=== PATIENT | male | born 1985 | race Caucasian/White ===

== ENCOUNTER 2018-02-10 17:00 | Inpatient (IN) | payer MEDICAID, SELFPAY ==
[2018-02-10] VITALS (20 sets, daily range): BP systolic 87–143; BP diastolic 65–80; PULSE 84–124; RESP 12–40; TEMP 36.2–36.6; O2SAT 66–100; BMI 26.6; BMI 27.3
--- NOTE | 2018-02-10 17:03 | EKG12_ITS ---
Test Reason : OD Blood Pressure : / mmHG Vent. Rate : 117 BPM Atrial Rate : 117 BPM P-R Int : 120 ms QRS Dur : 086 ms QT Int : 370 ms P-R-T Axes : 070 087 021 degrees QTc Int : 516 ms Sinus tachycardia Nonspecific ST abnormality Abnormal ECG Confirmed by HUMPHREY MORENO, NAHUM ([id number]), news assignment editor DIVYA TAYLOR ([id number]) on 02/14/2018 1:45:52 PM Referred By: TARUN Confirmed By:NAHUM YIN MD
--- NOTE | 2018-02-10 17:10 | RAD_ITS ---
XR Chest 1 View INDICATION: OVERDOSE, FOUND UNRESPONSIVE IN A FIELD COMPARISON: September 19, 2007 TECHNIQUE: Frontal view of the chest FINDINGS: Dense extensive airspace opacities are seen throughout both lungs, with obscuration of the cardiac border. No significant effusion. Osseous structures are grossly unremarkable. RAD/Chest 1 View (Portable) IMPRESSION: Diffuse dense bilateral air space opacities, may represent severe pulmonary edema or ARDS. Superimposed infection or aspiration not excluded. at 1727 Reported and signed by: Nimisha Ireland MD Electronically Signed: Nimisha Ireland MD at 17:25 EDT Tel , Service support ,
[2018-02-10] MEDS: Naloxone 2 MG/2 ML Syringe IV (17:13)
--- NOTE | 2018-02-10 17:16 | ED.DCSUM_ITS ---
- ER Visit Summary Date of Service: 02/10/18 Chief Complaint: Respiratory arrest secondary to IV heroin History of Present Illness: The patient is a 32 M who presents with pinpoint pupils and decreased level of conscious. Paramedics states his initial pulse ox was 48%. With tactile stimulus his pulse ox improved to 70%. He did receive intranasal Narcan. He is unable to give a sufficient history. He does admit to IV drug use. And specifically he admits to heroin. Track chan are noted. There is no evidence of abscess or cellulitis. There are no prior records. Allergies are unknown. Meds are unknown. Physical Examination: Initial vital signs reveal a blood pressure of 143/65 heart rate of 124 respiratory 35 with initial reading of 92% on 15 L by nonrebreather mask. He does have pink frothy sputum. He is in respiratory distress. Pupils are pinpoint. TMs normal. Posterior pharynx remarkable for frothy sputum. Trachea midline. Rales are noted throughout. Heart is rapid and regular. Abdomen is benign. He does have tattoos. None of his tattoos are infected. He is not alert nor is he oriented. He withdraws to painful stimuli. DTRs symmetric. There is no clonus or Babinski sign. Test Results: EKG reveals a sinus tachycardia rate of [address]-T wave changes. Single view portable x-ray reveals pulmonary edema interpreted by me. CBC is remarkable white count 3.4 thousand with 73% segs. Hemoglobin 19.5. ABG reveals a metabolic acidosis with a significant AA gradient. Emergency Department Course and Treatment: EKG, portable chest x-ray, ABG and appropriate blood work was ordered. I was informed by respiratory therapist his pulse ox was 67%. He was reexamined his pulse ox is now 92% on 15 L. Since clinically he is in pulmonary edema BiPAP was ordered. He will require admission to the ICU. Treatment Plan: BiPAP, symptomatic treatment and admission to ICU Disposition: Admit to ICU Impression: 1. Respiratory failure with hypoxia secondary to IV drug use, heroin 2. Pulmonary edema secondary to IV drug use 3. Metabolic acidosis 4. Sinus tachycardia documented on monitor and EKG This note was generated with [employer] dictation software. It may contain incorrect words, spelling, and punctuation that were not noted in review of the chart prior to signing ED Disposition - Plan for ED Patient: Chief Complaint: Overdose Referrals: Nicholas Prince [Primary Care Provider] -
[2018-02-10 17:30] LABS: Base Excess -9 mmol/L (-2 to +2); Bicarbonate 17.3 mmol/L (22-26); Blood Gas Specimen Type ART; EPAP 8; FI02 100; IPAP 12; PO2 198 mmHG (75-100); RR 12; SITE R Brachial; SO2 100 % (95-99); Time Given 1727; Total Carbon Dioxide 18 mmol/L; pH 7.31 (7.35-7.45)
[2018-02-10 17:46] LABS: Absolute Lymphocyte Count 0.73 X10^3/ul (0.83-4.51); Absolute Neutrophil Count 2.5 X10^3/uL (2.0-7.7); Basophil# 0.01 X10^3/uL; Basophil% 0.3 % (0-1); Lymphocyte # 0.73 X10^3/ul (4.0); Lymphocyte % 21.7 % (19-41); Mean Corp Hgb Conc 33.1 g/gl (32-36); Mean Corpuscular Hgb 28.1 pg (27.0-32.0); Mean Corpuscular Volume 84.7 fL (80-94); Mean Platelet Vol. 8.8 fl (6.2-12.0); Monocyte# 0.16 X10^3/uL; Monocyte% 4.7 % (0-10); Neutrophil # 2.47 X10^3/uL (2.7-7.7); Neutrophil % 73.3 % (47-70); Platelet Count 271 K/mm3 (150-450); RBC Distribution Width CV 13.6 % (11.6-14.6); RBC Distribution Width SD 42.5 fl (35.1-43.9); Red Blood Count 6.95 M/mm3 (4.6-6.2); White Blood Count 3.4 K/mm3 (4.4-11.0)
[2018-02-10 17:47] LABS: Hematocrit 58.9 % (40-54)
[2018-02-10 17:48] LABS: Hemoglobin 19.5 g/dl (13.0-16.5); POSITIVE COUNT NO; POSITIVE DIFFERENTIAL NO; POSITIVE MORPHOLOGY NO
[2018-02-10 18:17] LABS: BNP,B-Type NATRIURETIC PEPTIDE 29.5 pg/mL (0-100)
[2018-02-10 18:27] LABS: Anion Gap 10 (5-15); BUN 23 mg/dL (7-18); BUN/Creat Ratio 14.6 RATIO (10-20); Calcium,Total 8.3 mg/dL (8.5-10.1); Chloride 107 mmol/L (98-107); Creatinine, Serum 1.58 mg/dL (0.70-1.30); EST Glomerular Filtration Rate 54 mL/min (>60); Est Glom Filt Rate - Afr Amer 65 mL/min (>60); Estimated Creatinine Clearance 67.12 ml/min; Glucose 120 mg/dL (74-106); Potassium 3.5 mmol/L (3.5-5.1); Sodium Level 141 mmol/L (136-145)
--- NOTE | 2018-02-10 18:29 | HP.PCM_ITS ---
<Zeyad Byrne - Last Filed: 02/10/18 18:32> Problem List (1) Acute respiratory failure with hypoxia Status: Acute (2) Heroin abuse Status: Acute History of Present Illness Date of Admission: 02/10/18 Chief Complaint: decreased LOC The patient is a 32 year old M heroin abuser who presents to the ER via EMS for decreased LOC and respiratory failure. He was very lethargic and unable to provide much history. He was able to be awoken to answer yes/no questions, would not open his eyes or participate more than that. He has been SOB for one day and states he was in normal health prior to that. He was reported to be an IV heroin abuser, when I asked he states he snorts heroin, denies injecting, denies other drug use. He is SOB and was coughing up pink sputum at presentation. He has no fever at this time. He is resting on his left side on Bipap in the ER,respiratory is going to trial him on CPAP as well. ABG was acidotic with pH 7.31, low bicarb, 100% O2 sat with p)2 109, and pCO2 34 @ 12/ 8. He is tachycardic and tachypneic. At this time BMP is pending, he has a low white count and elevated Hgb. CXR shows diffuse opacities - ARDS picture vs severe edema vs infection. [] Past Medical History Allergies No Known Allergies Allergy (Verified 02/10/18 17:15) Surgical History: no surgical history Psychiatric History: No pertinent psych hx Lives: Alone Smoking Status: Current every day smoker Drugs: Heroin - *Family History Maternal History Items: Unknown Paternal History Items: Unknown Review of Systems Unable to obtain accurate/complete ROS d/t: limited 2/2 decreased LOC. VTE Information - Inpt Only VTE Present on Admission: No VTE Mechan Device Prophylaxis: SCD's VTE Pharm Prophylaxis ordered?: Yes Patient Problems: Active and Suspected Problems Acute respiratory failure with hypoxia (Acute) Heroin abuse (Acute) - Physical Exam General: Disoriented, Lethargic HEENT: Atraumatic Neck: Supple, No JVD, Negative Carotid Bruits Lungs: Diminished, Wheezes Cardiovascular: Regular rate, No murmurs Abdomen: Bowel Sounds Present, Soft, Non Tender Extremities: No edema, Capillary Refill Less than 3 Seconds Skin: No rashes, No breakdown Musculoskeletal: No Tenderness to Palpation of Joints or Extremities Neurological: Cranial nerves II-XII grossly intact Psych/Mental Status: Normal Affect, - - lethargic Vital Signs Temp Pulse Resp BP Pulse Ox 97.1 F L 103 H 30 H 114/70 92 02/10/18 17:02 02/10/18 18:06 02/10/18 18:06 02/10/18 18:06 02/10/18 18:06 Oxygen Flow Rate (L/min) 15 Oxygen Delivery Method Bi-pap Weight: 81.647 kg Body Mass Index (BMI) 26.6 Laboratory Tests Past 24 Hrs 02/10/18 02/10/18 02/10/18 17:25 17:25 17:25 WBC 3.4 L RBC 6.95 H Hgb 19.5 H* Hct 58.9 H MCV 84.7 MCH 28.1 MCHC 33.1 RDW 13.6 RDW Differential 42.5 Plt Count 271 MPV 8.8 Immature Gran % (Auto) 0.000 Neut % (Auto) 73.3 H Lymph % (Auto) 21.7 Sampson % (Auto) 4.7 Eos % (Auto) 0.0 Baso % (Auto) 0.3 Absolute Neuts (auto) 2.5 Absolute Lymphs (auto) 0.73 L Total Counted Not Reportable Specimen Type Sample Site pH Bicarbonate Actual POC Total CO2 Base Excess O2 Saturation O2 % ABG pCO2 ABG pO2 Respiration Rate O2 Delivery Device EPAP IPAP Blood Gas Notified Whom Blood Gas Notified Time Sodium Pending Potassium Pending Chloride Pending Carbon Dioxide Pending Anion Gap Pending BUN Pending Creatinine Pending Est GFR (MDRD) Af Amer Pending Est GFR (MDRD) Non-Af Pending BUN/Creatinine Ratio Pending Glucose Pending Lactic Acid Pending Calcium Pending B-Natriuretic Peptide 02/10/18 02/10/18 17:25 17:28 WBC RBC Hgb Hct MCV MCH MCHC RDW RDW Differential Plt Count MPV Immature Gran % (Auto) Neut % (Auto) Lymph % (Auto) Sampson % (Auto) Eos % (Auto) Baso % (Auto) Absolute Neuts (auto) Absolute Lymphs (auto) Total Counted Specimen Type ART Sample Site R Brachial pH 7.31 L Bicarbonate Actual 17.3 L POC Total CO2 18 Base Excess -9 L O2 Saturation 100 H O2 % 100 ABG pCO2 34.0 L ABG pO2 198 H Respiration Rate 12 O2 Delivery Device Bi / C PAP EPAP 8 IPAP 12 Blood Gas Notified Whom ED Blood Gas Notified Time 1727 Sodium Potassium Chloride Carbon Dioxide Anion Gap BUN Creatinine Est GFR (MDRD) Af Amer Est GFR (MDRD) Non-Af BUN/Creatinine Ratio Glucose Lactic Acid Calcium B-Natriuretic Peptide 29.5 Assessment/Plan Active and Suspected Problems Acute respiratory failure with hypoxia (Acute) Heroin abuse (Acute) 1. Acute hypoxic respiratory failure 2/2 heroin overdose with ARDS picture on CXR - pt improved after initial narcan administration. Possibly etiologies include septic emboli, pna, pulmonary edema. Pt will be admitted to ICU and the automotive general sales manager was contacted. Pt was also initially having pink frothy sputum. His pH was decreased at 7.31, however his O2 was high and CO2 low, so respiratory is backing him down to CPAP only at this time. Lungs are diminished and with faint wheezing. Decreased WBCs and decreased absolute lymphocyte count. BNP is WNL. He is tachycardic and tachypneic. -Pt to be placed Vanc/Zosyn -obtain blood cultures. -LA pending -sputum cx, urine antigens -ID consult -Echo tomorrow AM -screen for HIV, hepatitis -check CMP -check CT brain 2. MEAGAN - with elevated BUN, likely dehydrated, received 1 liter IV fluids in the ER. Continue IV fluids. DVT ppx: SCDs, defer chemoppx with hemoptysis This patient was seen by Zeyad Byrne PA-C under the supervision of Doctor Isiah. <Rolly Joyce - Last Filed: 02/10/18 18:57> History of Present Illness Seen and examined Patient was brought in by EMS for decreased level of consciousness, tachypneic, hypoxic respiratory failure. As per the ER physician, Dr. Marquez patient had pinpoint pupil, decreased level of consciousness and pulse ox was 88%. He was given Narcan for IV drug use heroin put on BiPAP. Initial vitals in the ER was tachycardiac, tachypneic and hypoxic. Initial blood work shows hematocrit 58.9, hemoglobin 19.5, leukocyte 3.4 thousand, ALC 730 suggestive of lymphopenia. ABG shows pH 7.31, PCO2 34 bicarb 24 so possible compensated metabolic acidosis with respiratory alkalosis. Chest x-ray shows diffuse dense bilateral airspace opacities, reported as severe and he developed ARDS. Superimposed infection or aspiration not excluded Past Medical History Allergies No Known Allergies Allergy (Verified 02/10/18 17:15) VTE Information - Inpt Only VTE Mechan Device Prophylaxis: SCD's VTE Pharm Prophylaxis ordered?: Yes - Physical Exam General: Alert, Confused, Disoriented, Lethargic HEENT: Atraumatic, Normocephalic, Sluggish Pupils Neck: Supple, No JVD, Negative Carotid Bruits Lungs: Diminished, Short of Breath, Tachypneic, Using Accessory Muscles, Wheezes - Expiratory wheezing present on both side Cardiovascular: Regular rate, Normal S1, Normal S2, No murmurs, Tachycardic Abdomen: Bowel Sounds Present, Soft, Non Tender Extremities: No edema, Capillary Refill Less than 3 Seconds Skin: No rashes, No breakdown Musculoskeletal: No Tenderness to Palpation of Joints or Extremities Neurological: Cranial nerves II-XII grossly intact Psych/Mental Status: Normal Affect, Appropriate Vital Signs Temp Pulse Resp BP Pulse Ox 97.1 F L 103 H 29 H 114/70 90 02/10/18 17:02 02/10/18 18:06 02/10/18 18:15 02/10/18 18:06 02/10/18 18:15 Assessment/Plan This patient was seen in conjunction with Zeyad SAEED. I have independently interviewed and examined the patient and reviewed pertinent history, examination findings, laboratory and plan of management. I have reviewed the note and agree with the documented findings with the few additional points. In brief, patient is admitted for SIRS (tachycardia, tachypnea, hypoxia, pulse ox was 88%. and leukopenia) possible secondary to bilateral diffuse pulmonary nodules suggestive of possible septic emboli, acute hypoxic respiratory failure with compensated metabolic acidosis. Patient also has altered mental status due to drug overdose. Patient was put on BiPAP and admitted in ICU. Deleon catheter ordered. IV fluid normal saline bolus and septic workup ordered Including broad-spectrum antibiotic vancomycin and Zosyn. HIV and hepatitis and 2D echo ordered. Discussed with automotive general sales manager Dr. Perez. ID consult. The patient also has acute kidney injury as mentioned above Chest x-ray shows diffuse dense bilateral airspace opacities, reported as severe and he developed ARDS. Superimposed infection or aspiration not excluded I have discussed my assessment with Zeyad SAEED and orders have been reviewed. Laboratory Results 02/10/18 17:25: WBC 3.4 L, RBC 6.95 H, Hgb 19.5 H*, Hct 58.9 H, MCV 84.7, MCH 28.1, MCHC 33.1, RDW 13.6, RDW Differential 42.5, Plt Count 271, MPV 8.8, Immature Gran % (Auto) 0.000, Neut % (Auto) 73.3 H, Lymph % (Auto) 21.7, Sampson % (Auto) 4.7, Eos % (Auto) 0.0, Baso % (Auto) 0.3, Absolute Neuts (auto) 2.5, Absolute Lymphs (auto) 0.73 L, Total Counted Not Reportable 02/10/18 17:25: Sodium 141, Potassium 3.5, Chloride 107, Carbon Dioxide 24.0, Anion Gap 10, BUN 23 H, Creatinine 1.58 H, Estim Creat Clear Calc 67.12, Est GFR (MDRD) Af Amer 65, Est GFR (MDRD) Non-Af 54 L, BUN/Creatinine Ratio 14.6, Glucose 120 H, Calcium 8.3 L 02/10/18 17:25: Lactic Acid Cancelled 02/10/18 17:25: B-Natriuretic Peptide 29.5 02/10/18 17:28: Specimen Type ART, Sample Site R Brachial, pH 7.31 L, Bicarbonate Actual 17.3 L, POC Total CO2 18, Base Excess -9 L, O2 Saturation 100 H, O2 % 100, ABG pCO2 34.0 L, ABG pO2 198 H, Respiration Rate 12, O2 Delivery Device Bi / C PAP, EPAP 8, IPAP 12, Blood Gas Notified Whom ED , Blood Gas Notified Time 1727 02/10/18 18:43: Lactic Acid Pending This note was generated with [employer] dictation software. Every effort was made to ensure accuracy, however computerized fiscal assistant mistakes may persist. Code Visit Inpatient E&M: 56809 Init Hosp L3
--- NOTE | 2018-02-10 18:52 | CT_ITS ---
CT Head or Brain W/O Contrast INDICATION: ALTERED MENTAL STATUS. Hypoxia secondary to IV drug use. Pt shielded COMPARISON: None TECHNIQUE: Noncontrast axial CT examination of the brain. Radiation dose optimization applied. FINDINGS: The ventricular system is normal in size and symmetric. The cortical sulci, sylvian fissures, and basal cisterns are well seen. The lanza-white matter junction is distinct. There is no evidence of acute intracranial hemorrhage, mass effect, midline shift, or abnormal extra-axial collection. The calvarium is intact. Small layering fluid in the right maxillary sinus, paranasal sinuses and mastoid cells are otherwise clear. CT/Brain/Head without Contrast IMPRESSION: No evidence of acute intracranial abnormality by noncontrast CT. at 1929 Reported and signed by: Nimisha Ireland MD Electronically Signed: Nimisha Ireland MD at 19:28 EDT Tel , Service support ,
--- NOTE | 2018-02-10 19:10 | RAD_ITS ---
XR Foot Min 3 Views INDICATION: right foot pain, bruising, patient found unresponsive in field earlier today for overdose COMPARISON: None TECHNIQUE: 3 views of the right foot FINDINGS: The osseous structures are intact and well aligned. Joint spaces are preserved. No evidence of fracture or dislocation. Soft tissue swelling is noted at the forefoot. RAD/Foot min 3 Views IMPRESSION: Soft tissue swelling of the right forefoot without evidence of fracture or dislocation. at 1929 Reported and signed by: Nimisha Ireland MD Electronically Signed: Nimisha Ireland MD at 19:27 EDT Tel , Service support ,
[2018-02-10 19:13] LABS: Lactic Acid 1.4 mmol/L (0.4-2.0)
[2018-02-10 20:10] LABS: International Normalized Ratio 1.2; Partial Thromboplast Time 25.2 Seconds (24.1-36.2); Prothrombin Time (Protime)PT. 14.7 SECONDS (11.7-14.9)
[2018-02-10 20:12] LABS: AST(SGOT) 87 U/L (15-37); Alanine Aminotransfer ALT/SGPT 79 U/L (16-61); Albumin, Serum 2.8 g/dL (3.2-5.0); Alkaline Phosphatase 170 U/L (45-117); Bilirubin, Direct 0.12 mg/dL (0.00-0.30); Globulin 3.2 g/dL (2.2-4.2)
[2018-02-10] MEDS: 0.9% Normal Saline 1,000 ML 100 ML IV (20:25)
--- NOTE | 2018-02-10 20:45 | PCM.RX.CS ---
Consult Pharmacy has been consulted to manage selected antiobiotic: Vancomycin Type of Consult: New start Suspected Infection: Sepsis Prior Doses of Antibiotics Received/Current Regimen: Medications Vancomycin HCl (Vancomycin) 1,000 mg in 200 mls @ 200 mls/hr IV Q12H SAMUEL Vancomycin HCl 1,250 mg/ (Dextrose) 275 mls @ 250 mls/hr IV X1 ONE Stop: 02/10/18 21:05 Last Admin: 02/10/18 20:25 Dose: 250 mls/hr Labs: Sodium 141 mmol/L (136-145) 02/10/18 17:25 Potassium 3.5 mmol/L (3.5-5.1) 02/10/18 17:25 Chloride 107 mmol/L (98-107) 02/10/18 17:25 Carbon Dioxide 24.0 mmol/L (21.0-32.0) 02/10/18 17:25 Anion Gap 10 (5-15) 02/10/18 17:25 BUN 23 mg/dL (7-18) H 02/10/18 17:25 Creatinine 1.58 mg/dL (0.70-1.30) H 02/10/18 17:25 Est GFR (MDRD) Af Amer 65 mL/min (>60) 02/10/18 17:25 Est GFR (MDRD) Non-Af 54 mL/min (>60) L 02/10/18 17:25 BUN/Creatinine Ratio 14.6 RATIO (10-20) 02/10/18 17:25 Glucose 120 mg/dL (74-106) H 02/10/18 17:25 Weight used for dosin.6 kg Estimated Creatinine Clearance: 67 ml/min Goal Trough: 15-20 mcg/mL Pharmacy Plan for Drug Dosing: Pharmacy Service will continue to monitor and adjust dosing as required. Follow-Up Labs: Trough Vancomycin Labs to be done on [date and time ordered]: 02/12/18 0830
[2018-02-10 21:03] LABS: HIV - WCH Non-Reactive (Nonreactive)
[2018-02-10 22:50] LABS: Probe Check PASS
[2018-02-10] MEDS: Ipratropium/Albuterol Sulfate 3 ML AMPUL.NEB INHALATION (22:50)
[2018-02-10 22:51] LABS: M R Staph aureus DNA By PCR POSITIVE (Negative)
[2018-02-10] MEDS: Piperacil/Tazobactam 3.375 GM/50 ML ML IV (23:00)
[2018-02-10 23:01] LABS: Color, Urine Yellow (Yellow); Glucose, Dipstick Normal (Normal); Ketone-Dipstick Negative (Negative); Leukocyte Esterase-Dipstick 500 /ul (Negative); Nitrite-Dipstick Negative (Negative); Occult Blood-Urine 50 /ul (Negative); Protein-Dipstick 30 mg/dl (Negative); Specific Gravity, Urine 1.025 (1.002-1.030); Urine Bilirubin Dipstick Negative (Negative); Urine Clarity Cloudy (Clear); Urine Urobilinogen Normal (Normal)
--- NOTE | 2018-02-10 23:42 | CPS ---
FIO2 to 45%
[2018-02-11] VITALS (40 sets, daily range): BP systolic 90–135; BP diastolic 53–84; PULSE 49–113; RESP 12–39; TEMP 36.4–37.9; O2SAT 86–100
--- NOTE | 2018-02-11 01:43 | CPS ---
decreased FIO2 to 35%
[2018-02-11] MEDS: Ipratropium/Albuterol Sulfate 3 ML AMPUL.NEB INHALATION ×2 (03:10→06:36)
[2018-02-11 05:25] LABS: Hematocrit 41.4 % (40-54); Hemoglobin 13.9 g/dl (13.0-16.5); Mean Corp Hgb Conc 33.6 g/gl (32-36); Mean Corpuscular Hgb 28.4 pg (27.0-32.0); Mean Corpuscular Volume 84.5 fL (80-94); Mean Platelet Vol. 9.1 fl (6.2-12.0); Platelet Count 187 K/mm3 (150-450); RBC Distribution Width CV 13.3 % (11.6-14.6); RBC Distribution Width SD 40.5 fl (35.1-43.9); White Blood Count 7.5 K/mm3 (4.4-11.0)
[2018-02-11 05:37] LABS: Scan Indicated on CBC? Y/N NO
--- NOTE | 2018-02-11 05:55 | RAD_ITS ---
STUDY: X-RAY CHEST REASON FOR EXAM: Male, 32 years old. Shortness of breath, cough, overdose, question aspiration. TECHNIQUE: PA and lateral views of the chest. COMPARISON: 02/10/2018 FINDINGS: Slight decrease of distribution and in density of bilateral alveolar airspace disease. Possible mild compression of basilar parenchyma. There is no demonstrated pleural abnormality. Normal size heart. Normal mediastinum and keeley. Normal visualized pulmonary arteries. Normal visualized aortic arch and descending thoracic aorta. Normal visualized thoracic spine. Normal visualized ribs, clavicles, and shoulders. There is no demonstrated abnormality of the visualized soft tissue structures of the upper abdomen. RAD/Chest PA and Lateral IMPRESSION: Airspace opacification/pulmonary edema appears mildly decreased. Electronically Signed: Beverly Freire MD at 5:03 EDT , Service support ,
--- NOTE | 2018-02-11 05:55 | ECHOD_ITS ---
Reason For Study: RESP FAILURE Procedure This was a 2D Doppler, Color Flow transthoracic echocardiogram. The exam was of adequate technical quality. Exam performed portable in ICU/CCU. Left Ventricle Normal LV size. Left ventricular systolic function is normal. The estimated ejection fraction is 65 %. No evidence for diastolic dysfunction. No regional wall motion abnormalities noted. Right Ventricle Normal RV size. Normal systolic function. Atria Normal left atrium. Normal right atrium. No doppler evidence for ASD. Mitral Valve There is no mitral annular calcification. Normal mitral valve. Trivial mitral valve insufficiency. Tricuspid Valve Normal tricuspid valve. Trivial tricuspid valve insufficiency. Right ventricular systolic pressure estimated to be 22 mmHg. Aortic Valve Normal aortic valve. Trisinus/trileaflet aortic valve. Pulmonic Valve The pulmonic valve is not well visualized. Trivial pulmonic valve insufficiency. Great Vessels Normal sized aortic root. Pericardium/Pleural No pericardial effusion. MMode/2D Measurements & Calculations LVIDd: 4.3 cm IVSd: 0.96 cm Ao root diam: 2.9 cm LVIDs: 2.5 cm LVPWd: 1.2 cm LA dimension: 3.1 cm RVDd: 2.9 cm FS: 41.5 % LAV(MOD-bp): 39.0 ml LA A4 area: 14.8 cm2 RA A4 area: 11.3 cm2 LAV(MOD-bp) Indexed: 20.0 ml/m2 LAV(MOD-sp2): 40.6 ml LAV(MOD-sp4): 36.3 ml Doppler Measurements & Calculations MV E max deven: 94.1 cm/sec Lat Peak E' Deven: 19.0 cm/sec Med Peak E' Deven: 11.3 cm/sec MV A max deven: 71.2 cm/sec E/E' lat: 4.9 E/E' med: 8.3 MV E/A: 1.3 Ao V2 max: 150.8 cm/sec LV V1 max: 137.4 cm/sec PA V2 max: 98.6 cm/sec Ao max P.1 mmHg LV V1 max P.6 mmHg PI end-d deven: 158.7 cm/sec TR max deven: 216.5 cm/sec TR max P.7 mmHg Interpretation Summary Left ventricular systolic function is normal. The estimated ejection fraction is 65 %. Trivial mitral valve insufficiency. Trivial tricuspid valve insufficiency. Trivial pulmonic valve insufficiency. Right ventricular systolic pressure estimated to be 22 mmHg. No evidence for diastolic dysfunction. Ordering Physician: Rolly Joyce Referring Physician: Nicholas Prince Performed By: Kerry Spain, MEERA, RVT
[2018-02-11 06:26] LABS: Anion Gap 7 (5-15); BUN 20 mg/dL (7-18); BUN/Creat Ratio 19.6 RATIO (10-20); Chloride 110 mmol/L (98-107); Creatinine, Serum 1.02 mg/dL (0.70-1.30); EST Glomerular Filtration Rate 90 mL/min (>60); Est Glom Filt Rate - Afr Amer 108 mL/min (>60); Estimated Creatinine Clearance 100.59 ml/min; Glucose 109 mg/dL (74-106); Potassium 3.8 mmol/L (3.5-5.1); Sodium Level 141 mmol/L (136-145)
[2018-02-11] MEDS: Piperacil/Tazobactam 3.375 GM/50 ML ML IV (06:43)
--- NOTE | 2018-02-11 06:52 | PCM.CON.CC ---
Problem List (1) Acute respiratory failure with hypoxia Status: Acute (2) Heroin abuse Status: Acute Reason for Consult Date of Consultation: 02/11/18 Reason for Consultation: Acute hypoxic respiratory failure History of Present Illness: The patient is a 32 year old M, with a past medical history significant for heroin abuse, presented to [facility] on 02/10/2018 after being found hypoxic. Patient reportedly was found blue with a saturation of 48%. Patient did receive intranasal Narcan, but was unable to provide any history at that time. Patient reportedly did report intranasal and IV heroin use in the past. Upon presentation to the emergency room, patient was noted to be tachycardic with a saturation of 92% on a nonrebreather mask. Patient reportedly had a cough productive of frothy sputum and rales were noted throughout. EKG showed sinus tachycardia and a portable chest x-ray showed bilateral pulmonary infiltrates that was suspected to be pulmonary edema. Initial hemoglobin was noted to be 19.5. Patient was placed on BiPAP and admitted to the intensive care unit. While in the intensive care unit, patient has been requiring BiPAP throughout the evening. Mental status has slowly improved. No fevers have been noted. Patient denies any pain at this time. Patient is intermittently cooperative with questioning, but is not providing a review of systems at this time. Patient continues to report IV and snorting of heroin. Patient states he did snort heroin yesterday, but is not answering questions as far as the frequency per dose administered. Patient is not answering if he has a history of endocarditis secondary to IV drug use, sharing of needles or recent constitutional symptoms such as fever, chills, nausea or vomiting. Past Medical History Allergies No Known Allergies Allergy (Verified 02/10/18 17:15) Surgical History: no surgical history Psychiatric History: No pertinent psych hx Lives: Alone Smoking Status: Current every day smoker Drugs: Heroin - *Family History Maternal History Items: Unknown Paternal History Items: Unknown Review of Systems Unable to obtain accurate/complete ROS d/t: See HPI Patient Problems: Active and Suspected Problems Acute respiratory failure with hypoxia (Acute) Heroin abuse (Acute) Objective: Multiple chest x-rays were reviewed. All of these show bilateral fluffy infiltrates without pneumothorax. Foot x-ray reportedly shows soft tissue swelling only. - Physical Exam General: - - RASS -2. Intermittently cooperative with exam. Thin build. HEENT: Atraumatic, PERRLA, EOMI, Normocephalic, - - Scleral injection noted Oral: Moist Mucosa, No Gingival or Mucosal Lesions/ Ulcerations, - - Fair dentition Neck: Supple, No JVD, No Nodes, Trachea Midline Lungs: No rhonchi, No wheeze, Rales, - - Symmetric expansion. No dullness to percussion. Cardiovascular: Normal S1, Normal S2, No murmurs, No rub noted, No Gallop, Tachycardic Abdomen: Bowel Sounds Present, Soft, Non Tender, Non-Distended, Obese Extremities: No clubbing, No cyanosis, No edema, - - Numerous track chan noted. Skin: - - No obvious sites of superficial erythema or fluctuance Musculoskeletal: No Tenderness to Palpation of Joints or Extremities Lymphatic: No Cervical, Supraclavicular, or Inguinal Adenopathy Neurological: Cranial nerves II-XII grossly intact, Neuro grossly intact, Motor Exam 5/5 strength throughout, Sensory exam intact to light touch and pain, - - Spontaneous movement of all extremities. Psych/Mental Status: Flat Affect, Restless Vital Signs Temp Pulse Resp BP Pulse Ox 37.2 C 82 36 H 100/74 98 02/11/18 04:00 02/11/18 05:45 02/11/18 05:45 02/11/18 05:00 02/11/18 05:45 Oxygen Delivery Method Bi-pap Weight: 81.3 kg Body Mass Index (BMI) 27.3 Intake and Output for Last 24 Hours 02/09/18 02/10/18 02/11/18 23:59 23:59 23:59 Intake Total 812 / 812 Output Total 415 / 415 Balance 397 / 397 Microbiology Past 72 Hours 02/10/18 22:00 Legionella Antigen - Final Urine, Clean Catch Streptococcus pneumoniae Antigen (M - Final Laboratory Tests Past 24 Hrs 02/10/18 02/10/18 02/10/18 18:43 19:35 19:35 WBC RBC Hgb Hct MCV MCH MCHC RDW RDW Differential Plt Count MPV PT 14.7 INR 1.2 APTT 25.2 Sodium Potassium Chloride Carbon Dioxide Anion Gap BUN Creatinine Estim Creat Clear Calc Est GFR (MDRD) Af Amer Est GFR (MDRD) Non-Af BUN/Creatinine Ratio Glucose Lactic Acid 1.4 Calcium Total Bilirubin 0.30 Direct Bilirubin 0.12 AST 87 H ALT 79 H Alkaline Phosphatase 170 H Total Protein 6.0 L Albumin 2.8 L Globulin 3.2 Urine Color Urine Clarity Urine pH Ur Specific [place] Urine Protein Urine Glucose (UA) Urine Ketones Urine Occult Blood Urine Nitrite Urine Bilirubin Urine Urobilinogen Ur Leukocyte Esterase Hepatitis A IgM Ab Hep Bs Antigen Hep B Core IgM Ab Hepatitis C Ab (EIA) HIV 1&2 Antibody MRSA (PCR) 02/10/18 02/10/18 02/10/18 19:35 19:35 20:20 WBC RBC Hgb Hct MCV MCH MCHC RDW RDW Differential Plt Count MPV PT INR APTT Sodium Potassium Chloride Carbon Dioxide Anion Gap BUN Creatinine Estim Creat Clear Calc Est GFR (MDRD) Af Amer Est GFR (MDRD) Non-Af BUN/Creatinine Ratio Glucose Lactic Acid Calcium Total Bilirubin Direct Bilirubin AST ALT Alkaline Phosphatase Total Protein Albumin Globulin Urine Color Urine Clarity Urine pH Ur Specific [place] Urine Protein Urine Glucose (UA) Urine Ketones Urine Occult Blood Urine Nitrite Urine Bilirubin Urine Urobilinogen Ur Leukocyte Esterase Hepatitis A IgM Ab Pending Hep Bs Antigen Pending Hep B Core IgM Ab Pending Hepatitis C Ab (EIA) Pending HIV 1&2 Antibody Non-Reactive MRSA (PCR) POSITIVE H 02/10/18 02/11/18 02/11/18 22:00 04:30 04:30 WBC 7.5 RBC 4.90 Hgb 13.9 Hct 41.4 MCV 84.5 MCH 28.4 MCHC 33.6 RDW 13.3 RDW Differential 40.5 Plt Count 187 MPV 9.1 PT INR APTT Sodium Cancelled Potassium Cancelled Chloride Cancelled Carbon Dioxide Cancelled Anion Gap Cancelled BUN Cancelled Creatinine Cancelled Estim Creat Clear Calc Cancelled Est GFR (MDRD) Af Amer Cancelled Est GFR (MDRD) Non-Af Cancelled BUN/Creatinine Ratio Cancelled Glucose Cancelled Lactic Acid Calcium Cancelled Total Bilirubin Direct Bilirubin AST ALT Alkaline Phosphatase Total Protein Albumin Globulin Urine Color Yellow Urine Clarity Cloudy Urine pH 6.0 Ur Specific [place] 1.025 Urine Protein 30 H Urine Glucose (UA) Normal Urine Ketones Negative Urine Occult Blood 50 H Urine Nitrite Negative Urine Bilirubin Negative Urine Urobilinogen Normal Ur Leukocyte Esterase 500 H Hepatitis A IgM Ab Hep Bs Antigen Hep B Core IgM Ab Hepatitis C Ab (EIA) HIV 1&2 Antibody MRSA (PCR) 02/11/18 06:00 WBC RBC Hgb Hct MCV MCH MCHC RDW RDW Differential Plt Count MPV PT INR APTT Sodium 141 Potassium 3.8 Chloride 110 H Carbon Dioxide 24.0 Anion Gap 7 BUN 20 H Creatinine 1.02 Estim Creat Clear Calc 100.59 Est GFR (MDRD) Af Amer 108 Est GFR (MDRD) Non-Af 90 BUN/Creatinine Ratio 19.6 Glucose 109 H Lactic Acid Calcium 8.0 L Total Bilirubin Direct Bilirubin AST ALT Alkaline Phosphatase Total Protein Albumin Globulin Urine Color Urine Clarity Urine pH Ur Specific [place] Urine Protein Urine Glucose (UA) Urine Ketones Urine Occult Blood Urine Nitrite Urine Bilirubin Urine Urobilinogen Ur Leukocyte Esterase Hepatitis A IgM Ab Hep Bs Antigen Hep B Core IgM Ab Hepatitis C Ab (EIA) HIV 1&2 Antibody MRSA (PCR) Clinical Impression(s) from Imaging Studies Chest X-Ray 02/10/18 17:10 IMPRESSION: Diffuse dense bilateral air space opacities, may represent severe pulmonary edema or ARDS. Superimposed infection or aspiration not excluded. at 1727 Reported and signed by: Nimisha Ireland MD Electronically Signed: Nimisha Ireland MD at 17:25 EDT Tel , Service support , Brain CT 02/10/18 18:52 IMPRESSION: No evidence of acute intracranial abnormality by noncontrast CT. at 1929 Reported and signed by: Nimisha Ireland MD Electronically Signed: Nimisha Ireland MD at 19:28 EDT Tel , Service support , Foot X-Ray 02/10/18 19:10 IMPRESSION: Soft tissue swelling of the right forefoot without evidence of fracture or dislocation. at 1929 Reported and signed by: Nimisha Ireland MD Electronically Signed: Nimisha Ireland MD at 19:27 EDT Tel , Service support , Chest X-Ray 02/11/18 05:55 IMPRESSION: Airspace opacification/pulmonary edema appears mildly decreased. Electronically Signed: Beverly Freire MD at 5:03 EDT , Service support , Assessment/Plan Active and Suspected Problems Acute respiratory failure with hypoxia (Acute) Heroin abuse (Acute) RECOMMENDATIONS: 1. Continue empiric antibiotics 2. Await blood cultures and echocardiogram 3. BiPAP breaks as tolerated 4. Possible CT chest later today 5. Initiate p.o. diet if able to tolerate off BiPAP for more than an hour IMPRESSIONS: 1. Acute hypoxic respiratory failure Exact etiology is unclear at this time. Differential diagnosis would include: ARDS, septic emboli, neurogenic pulmonary edema, PCP pneumonia and hypersensitivity pneumonitis secondary to talc. Patient's infiltrates have not significantly improved overnight despite BiPAP therapy. Patient continues to have an elevated respiratory rate and increased FiO2 requirements. Will attempt BiPAP breaks later today. Patient should remain on empiric antibiotics until blood cultures are negative. Patient does have an echocardiogram to evaluate for possible endocarditis. Patient may require CT scan of the chest to further evaluate parenchymal injury. If patient is able to tolerate BiPAP breaks, initiation of diet would not be unreasonable. 2. Poor cooperation/history of heroin abuse Patient is not very forthcoming on the details leading to his presentation. Will need to watch closely for signs and symptoms of withdrawal. HIV testing is negative. Hepatitis panel is currently pending. TIME: 32 minutes critical care time spent addressing patient's acute hypoxic respiratory failure, attempting to obtain history, review of all data and collaboration with care team (5:30 AM to 6:30 AM) Code Visit [id number]: [id number] Critical care first hour
--- NOTE | 2018-02-11 07:08 | CON.PCM_ITS ---
Problem List (1) Acute respiratory failure with hypoxia Status: Acute (2) Heroin abuse Status: Acute Reason for Consult Date of Consultation: 02/11/18 Reason for Consultation: Acute hypoxic respiratory failure History of Present Illness: The patient is a 32 year old M, with a past medical history significant for heroin abuse, presented to [facility] on 02/10/2018 after being found hypoxic. Patient reportedly was found blue with a saturation of 48%. Patient did receive intranasal Narcan, but was unable to provide any history at that time. Patient reportedly did report intranasal and IV heroin use in the past. Upon presentation to the emergency room, patient was noted to be tachycardic with a saturation of 92% on a nonrebreather mask. Patient reportedly had a cough productive of frothy sputum and rales were noted throughout. EKG showed sinus tachycardia and a portable chest x-ray showed bilateral pulmonary infiltrates that was suspected to be pulmonary edema. Initial hemoglobin was noted to be 19.5. Patient was placed on BiPAP and admitted to the intensive care unit. While in the intensive care unit, patient has been requiring BiPAP throughout the evening. Mental status has slowly improved. No fevers have been noted. Patient denies any pain at this time. Patient is intermittently cooperative with questioning, but is not providing a review of systems at this time. Patient continues to report IV and snorting of heroin. Patient states he did snort heroin yesterday, but is not answering questions as far as the frequency per dose administered. Patient is not answering if he has a history of endocarditis secondary to IV drug use, sharing of needles or recent constitutional symptoms such as fever, chills, nausea or vomiting. Past Medical History Allergies No Known Allergies Allergy (Verified 02/10/18 17:15) Surgical History: no surgical history Psychiatric History: No pertinent psych hx Lives: Alone Smoking Status: Current every day smoker Drugs: Heroin - *Family History Maternal History Items: Unknown Paternal History Items: Unknown Review of Systems Unable to obtain accurate/complete ROS d/t: See HPI Patient Problems: Active and Suspected Problems Acute respiratory failure with hypoxia (Acute) Heroin abuse (Acute) Objective: Multiple chest x-rays were reviewed. All of these show bilateral fluffy infiltrates without pneumothorax. Foot x-ray reportedly shows soft tissue swelling only. - Physical Exam General: - - RASS -2. Intermittently cooperative with exam. Thin build. HEENT: Atraumatic, PERRLA, EOMI, Normocephalic, - - Scleral injection noted Oral: Moist Mucosa, No Gingival or Mucosal Lesions/ Ulcerations, - - Fair dentition Neck: Supple, No JVD, No Nodes, Trachea Midline Lungs: No rhonchi, No wheeze, Rales, - - Symmetric expansion. No dullness to percussion. Cardiovascular: Normal S1, Normal S2, No murmurs, No rub noted, No Gallop, Tachycardic Abdomen: Bowel Sounds Present, Soft, Non Tender, Non-Distended, Obese Extremities: No clubbing, No cyanosis, No edema, - - Numerous track chan noted. Skin: - - No obvious sites of superficial erythema or fluctuance Musculoskeletal: No Tenderness to Palpation of Joints or Extremities Lymphatic: No Cervical, Supraclavicular, or Inguinal Adenopathy Neurological: Cranial nerves II-XII grossly intact, Neuro grossly intact, Motor Exam 5/5 strength throughout, Sensory exam intact to light touch and pain, - - Spontaneous movement of all extremities. Psych/Mental Status: Flat Affect, Restless Vital Signs Temp Pulse Resp BP Pulse Ox 37.2 C 82 36 H 100/74 98 02/11/18 04:00 02/11/18 05:45 02/11/18 05:45 02/11/18 05:00 02/11/18 05:45 Oxygen Delivery Method Bi-pap Weight: 81.3 kg Body Mass Index (BMI) 27.3 Intake and Output for Last 24 Hours 02/09/18 02/10/18 02/11/18 23:59 23:59 23:59 Intake Total 812 / 812 Output Total 415 / 415 Balance 397 / 397 Microbiology Past 72 Hours 02/10/18 22:00 Legionella Antigen - Final Urine, Clean Catch Streptococcus pneumoniae Antigen (M - Final Laboratory Tests Past 24 Hrs 02/10/18 02/10/18 02/10/18 18:43 19:35 19:35 WBC RBC Hgb Hct MCV MCH MCHC RDW RDW Differential Plt Count MPV PT 14.7 INR 1.2 APTT 25.2 Sodium Potassium Chloride Carbon Dioxide Anion Gap BUN Creatinine Estim Creat Clear Calc Est GFR (MDRD) Af Amer Est GFR (MDRD) Non-Af BUN/Creatinine Ratio Glucose Lactic Acid 1.4 Calcium Total Bilirubin 0.30 Direct Bilirubin 0.12 AST 87 H ALT 79 H Alkaline Phosphatase 170 H Total Protein 6.0 L Albumin 2.8 L Globulin 3.2 Urine Color Urine Clarity Urine pH Ur Specific [place] Urine Protein Urine Glucose (UA) Urine Ketones Urine Occult Blood Urine Nitrite Urine Bilirubin Urine Urobilinogen Ur Leukocyte Esterase Hepatitis A IgM Ab Hep Bs Antigen Hep B Core IgM Ab Hepatitis C Ab (EIA) HIV 1&2 Antibody MRSA (PCR) 02/10/18 02/10/18 02/10/18 19:35 19:35 20:20 WBC RBC Hgb Hct MCV MCH MCHC RDW RDW Differential Plt Count MPV PT INR APTT Sodium Potassium Chloride Carbon Dioxide Anion Gap BUN Creatinine Estim Creat Clear Calc Est GFR (MDRD) Af Amer Est GFR (MDRD) Non-Af BUN/Creatinine Ratio Glucose Lactic Acid Calcium Total Bilirubin Direct Bilirubin AST ALT Alkaline Phosphatase Total Protein Albumin Globulin Urine Color Urine Clarity Urine pH Ur Specific [place] Urine Protein Urine Glucose (UA) Urine Ketones Urine Occult Blood Urine Nitrite Urine Bilirubin Urine Urobilinogen Ur Leukocyte Esterase Hepatitis A IgM Ab Pending Hep Bs Antigen Pending Hep B Core IgM Ab Pending Hepatitis C Ab (EIA) Pending HIV 1&2 Antibody Non-Reactive MRSA (PCR) POSITIVE H 02/10/18 02/11/18 02/11/18 22:00 04:30 04:30 WBC 7.5 RBC 4.90 Hgb 13.9 Hct 41.4 MCV 84.5 MCH 28.4 MCHC 33.6 RDW 13.3 RDW Differential 40.5 Plt Count 187 MPV 9.1 PT INR APTT Sodium Cancelled Potassium Cancelled Chloride Cancelled Carbon Dioxide Cancelled Anion Gap Cancelled BUN Cancelled Creatinine Cancelled Estim Creat Clear Calc Cancelled Est GFR (MDRD) Af Amer Cancelled Est GFR (MDRD) Non-Af Cancelled BUN/Creatinine Ratio Cancelled Glucose Cancelled Lactic Acid Calcium Cancelled Total Bilirubin Direct Bilirubin AST ALT Alkaline Phosphatase Total Protein Albumin Globulin Urine Color Yellow Urine Clarity Cloudy Urine pH 6.0 Ur Specific [place] 1.025 Urine Protein 30 H Urine Glucose (UA) Normal Urine Ketones Negative Urine Occult Blood 50 H Urine Nitrite Negative Urine Bilirubin Negative Urine Urobilinogen Normal Ur Leukocyte Esterase 500 H Hepatitis A IgM Ab Hep Bs Antigen Hep B Core IgM Ab Hepatitis C Ab (EIA) HIV 1&2 Antibody MRSA (PCR) 02/11/18 06:00 WBC RBC Hgb Hct MCV MCH MCHC RDW RDW Differential Plt Count MPV PT INR APTT Sodium 141 Potassium 3.8 Chloride 110 H Carbon Dioxide 24.0 Anion Gap 7 BUN 20 H Creatinine 1.02 Estim Creat Clear Calc 100.59 Est GFR (MDRD) Af Amer 108 Est GFR (MDRD) Non-Af 90 BUN/Creatinine Ratio 19.6 Glucose 109 H Lactic Acid Calcium 8.0 L Total Bilirubin Direct Bilirubin AST ALT Alkaline Phosphatase Total Protein Albumin Globulin Urine Color Urine Clarity Urine pH Ur Specific [place] Urine Protein Urine Glucose (UA) Urine Ketones Urine Occult Blood Urine Nitrite Urine Bilirubin Urine Urobilinogen Ur Leukocyte Esterase Hepatitis A IgM Ab Hep Bs Antigen Hep B Core IgM Ab Hepatitis C Ab (EIA) HIV 1&2 Antibody MRSA (PCR) Clinical Impression(s) from Imaging Studies Chest X-Ray 02/10/18 17:10 IMPRESSION: Diffuse dense bilateral air space opacities, may represent severe pulmonary edema or ARDS. Superimposed infection or aspiration not excluded. at 1727 Reported and signed by: Nimisha Ireland MD Electronically Signed: Nimisha Ireland MD at 17:25 EDT Tel , Service support , Brain CT 02/10/18 18:52 IMPRESSION: No evidence of acute intracranial abnormality by noncontrast CT. at 1929 Reported and signed by: Nimisha Ireland MD Electronically Signed: Nimisha Ireland MD at 19:28 EDT Tel , Service support , Foot X-Ray 02/10/18 19:10 IMPRESSION: Soft tissue swelling of the right forefoot without evidence of fracture or dislocation. at 1929 Reported and signed by: Nimisha Ireland MD Electronically Signed: Nimisha Ireland MD at 19:27 EDT Tel , Service support , Chest X-Ray 02/11/18 05:55 IMPRESSION: Airspace opacification/pulmonary edema appears mildly decreased. Electronically Signed: Beverly Freire MD at 5:03 EDT , Service support , Assessment/Plan Active and Suspected Problems Acute respiratory failure with hypoxia (Acute) Heroin abuse (Acute) RECOMMENDATIONS: 1. Continue empiric antibiotics 2. Await blood cultures and echocardiogram 3. BiPAP breaks as tolerated 4. Possible CT chest later today 5. Initiate p.o. diet if able to tolerate off BiPAP for more than an hour IMPRESSIONS: 1. Acute hypoxic respiratory failure Exact etiology is unclear at this time. Differential diagnosis would include: ARDS, septic emboli, neurogenic pulmonary edema, PCP pneumonia and hypersensitivity pneumonitis secondary to talc. Patient's infiltrates have not significantly improved overnight despite BiPAP therapy. Patient continues to have an elevated respiratory rate and increased FiO2 requirements. Will attempt BiPAP breaks later today. Patient should remain on empiric antibiotics until blood cultures are negative. Patient does have an echocardiogram to evaluate for possible endocarditis. Patient may require CT scan of the chest to further evaluate parenchymal injury. If patient is able to tolerate BiPAP breaks, initiation of diet would not be unreasonable. 2. Poor cooperation/history of heroin abuse Patient is not very forthcoming on the details leading to his presentation. Will need to watch closely for signs and symptoms of withdrawal. HIV testing is negative. Hepatitis panel is currently pending. TIME: 32 minutes critical care time spent addressing patient's acute hypoxic respiratory failure, attempting to obtain history, review of all data and collaboration with care team (5:30 AM to 6:30 AM) Code Visit [id number]: [id number] Critical care first hour
[2018-02-11] MEDS: Famotidine 20 MG Tablet PO ×2 (09:41→21:17)
--- NOTE | 2018-02-11 09:53 | CASEMGMT ---
Addendum entered by Aracely Gold 02/11/18 13:19: SW did speak w/pt again this afternoon. Pt has bipap mask on, but still was able to answer SW questions and acknowledge he understood. SW did ask, pt denies being suicidal at this time. SW gave pt his [facility] Medicaid number, and information for treatment with [facility] and [facility](both offer suboxone and counseling). SW explained [facility] takes pt's insurance, [facility] is private pay. SW inquired, pt cannot afford to pay privately for services. SW encouraged him to call the intake number for [facility] that SW wrote down, as they do take pt's insurance. SW explained that SW is not able to make an appt for him, he needs to do it himself. Pt nodded that he understands. Information left for pt at his bedside. No further social service needs are indicated at this time, SW remains available should any additional needs arise. MARCIA Martel, EQUIPMENT SPECIALIST Original Note: SW participated in ICU rounds, then spoke w/pt after rounds regarding financial situation, family situation, mental health and substance abuse. Pt states lives alone in an apartment in [facility](demographics corrected). Pt thinks he has Medicaid, is not certain. Pt states is unemployed and has no source of income. SW called our financial department, Ronit was able to verify pt has [facility] Medicaid, SW let pt know. In regard to family, pt states he does not talk w/his parents much, and does not want them to know he is here. Pt knows his father's address, but not his phone number, knows his mother's phone number, but not the address. SW spoke w/pt about mental health, pt denies any history of mental health diagnoses, depression or anxiety. Pt has not been in counseling for mental health in the past. SW asked pt about substance abuse. Pt did confirm he sniffed heroin yesterday, also confirms he has injected heroin also in the past. When asked, pt states he is not able to recall the details of what happened yesterday or how ended up in the hospital. Pt states he has been using heroin for the last 5-6 years. Pt denies using any other substances or alcohol. Pt states he has been in treatment in the past. Pt has not been in treatment in [place], is interested in outpt program information. Pt is also interested in suboxone. Pt is not interested in inpt services at this time. SW explained will look up some information for him and will also speak w/[facility] about options, explained [facility] to pt briefly as well. Throughout our conversation, pt was alert and oriented however when SW inquired about his substance abuse history, pt became quite sleepy. Though pt answered questions, he did not elaborate. SW called Michelle in [facility], message left inquiring about programs in [facility]. SW will give pt resources later today and also offer to make appointment for pt. MARCIA Martel, EQUIPMENT SPECIALIST
--- NOTE | 2018-02-11 10:27 | CON.PCM_ITS ---
Problem List (1) Acute respiratory failure with hypoxia Status: Acute Reason for Consult: resp failure Consulted by: Dr. Perez History of Present Illness: The patient is a 32 year old M with h/o heroin abuse who was found down by EMS yesterday, reportedly was blue with frothy sputum. Reports h/o injection drug use, but recently has been snorting. Denies any h/o abscess or MRSA infection. Denies sharing needles or straws. Denies any prior hiv or hepatitis testing. Taken to ED, admitted to icu on vanc/zosyn. Breathing better, but still some dry cough and SOB. No fever or chills. Full ROS performed and neg except as noted above. - Medical History Allergies/Adverse Reactions: Allergies No Known Allergies Allergy (Verified 02/10/18 17:15) - Social History SMOKING STATUS:: Current every day smoker Vital Signs Temp Pulse Resp BP Pulse Ox 98.5 F 73 24 H 109/84 H 100 02/11/18 08:00 02/11/18 09:00 02/11/18 09:00 02/11/18 09:00 02/11/18 09:00 Oxygen Flow Rate (L/min) 4 Oxygen Delivery Method Nasal Cannula Weight: 81.3 kg Body Mass Index (BMI) 27.3 Microbiology Past 72 Hours 02/10/18 22:00 Legionella Antigen - Final Urine, Clean Catch Streptococcus pneumoniae Antigen (M - Final Laboratory Tests Past 24 Hrs 02/10/18 02/10/18 02/10/18 18:43 19:35 19:35 WBC RBC Hgb Hct MCV MCH MCHC RDW RDW Differential Plt Count MPV PT 14.7 INR 1.2 APTT 25.2 Sodium Potassium Chloride Carbon Dioxide Anion Gap BUN Creatinine Estim Creat Clear Calc Est GFR (MDRD) Af Amer Est GFR (MDRD) Non-Af BUN/Creatinine Ratio Glucose Lactic Acid 1.4 Calcium Total Bilirubin 0.30 Direct Bilirubin 0.12 AST 87 H ALT 79 H Alkaline Phosphatase 170 H Total Protein 6.0 L Albumin 2.8 L Globulin 3.2 Urine Color Urine Clarity Urine pH Ur Specific [place] Urine Protein Urine Glucose (UA) Urine Ketones Urine Occult Blood Urine Nitrite Urine Bilirubin Urine Urobilinogen Ur Leukocyte Esterase Hepatitis A IgM Ab Hep Bs Antigen Hep B Core IgM Ab Hepatitis C Ab (EIA) HIV 1&2 Antibody MRSA (PCR) 02/10/18 02/10/18 02/10/18 19:35 19:35 20:20 WBC RBC Hgb Hct MCV MCH MCHC RDW RDW Differential Plt Count MPV PT INR APTT Sodium Potassium Chloride Carbon Dioxide Anion Gap BUN Creatinine Estim Creat Clear Calc Est GFR (MDRD) Af Amer Est GFR (MDRD) Non-Af BUN/Creatinine Ratio Glucose Lactic Acid Calcium Total Bilirubin Direct Bilirubin AST ALT Alkaline Phosphatase Total Protein Albumin Globulin Urine Color Urine Clarity Urine pH Ur Specific [place] Urine Protein Urine Glucose (UA) Urine Ketones Urine Occult Blood Urine Nitrite Urine Bilirubin Urine Urobilinogen Ur Leukocyte Esterase Hepatitis A IgM Ab Pending Hep Bs Antigen Pending Hep B Core IgM Ab Pending Hepatitis C Ab (EIA) Pending HIV 1&2 Antibody Non-Reactive MRSA (PCR) POSITIVE H 02/10/18 02/11/18 02/11/18 22:00 04:30 04:30 WBC 7.5 RBC 4.90 Hgb 13.9 Hct 41.4 MCV 84.5 MCH 28.4 MCHC 33.6 RDW 13.3 RDW Differential 40.5 Plt Count 187 MPV 9.1 PT INR APTT Sodium Cancelled Potassium Cancelled Chloride Cancelled Carbon Dioxide Cancelled Anion Gap Cancelled BUN Cancelled Creatinine Cancelled Estim Creat Clear Calc Cancelled Est GFR (MDRD) Af Amer Cancelled Est GFR (MDRD) Non-Af Cancelled BUN/Creatinine Ratio Cancelled Glucose Cancelled Lactic Acid Calcium Cancelled Total Bilirubin Direct Bilirubin AST ALT Alkaline Phosphatase Total Protein Albumin Globulin Urine Color Yellow Urine Clarity Cloudy Urine pH 6.0 Ur Specific [place] 1.025 Urine Protein 30 H Urine Glucose (UA) Normal Urine Ketones Negative Urine Occult Blood 50 H Urine Nitrite Negative Urine Bilirubin Negative Urine Urobilinogen Normal Ur Leukocyte Esterase 500 H Hepatitis A IgM Ab Hep Bs Antigen Hep B Core IgM Ab Hepatitis C Ab (EIA) HIV 1&2 Antibody MRSA (PCR) 02/11/18 06:00 WBC RBC Hgb Hct MCV MCH MCHC RDW RDW Differential Plt Count MPV PT INR APTT Sodium 141 Potassium 3.8 Chloride 110 H Carbon Dioxide 24.0 Anion Gap 7 BUN 20 H Creatinine 1.02 Estim Creat Clear Calc 100.59 Est GFR (MDRD) Af Amer 108 Est GFR (MDRD) Non-Af 90 BUN/Creatinine Ratio 19.6 Glucose 109 H Lactic Acid Calcium 8.0 L Total Bilirubin Direct Bilirubin AST ALT Alkaline Phosphatase Total Protein Albumin Globulin Urine Color Urine Clarity Urine pH Ur Specific [place] Urine Protein Urine Glucose (UA) Urine Ketones Urine Occult Blood Urine Nitrite Urine Bilirubin Urine Urobilinogen Ur Leukocyte Esterase Hepatitis A IgM Ab Hep Bs Antigen Hep B Core IgM Ab Hepatitis C Ab (EIA) HIV 1&2 Antibody MRSA (PCR) - Other Studies Radiology: [] reviewed Other Studies: [] Route of nutrition/ use of supplements: [] Nutritional Intake: [] IV Site: [] Deleon Catheter: [] - Physical Exam General: Alert, Oriented x3, Cooperative, No apparent distress HEENT: Atraumatic, PERRLA, EOMI Neck: Supple, No Nodes Lungs: Rales, - - diminished Cardiovascular: No murmurs, Tachycardic Abdomen: Bowel Sounds Present, Soft, Non Tender, Non-Distended Extremities: No edema Skin: No rashes - no abscess or cellulitis seen IV Site: Peripheral, without redness Musculoskeletal: No Tenderness to Palpation of Joints or Extremities Neurological: Cranial nerves II-XII grossly intact - Assessment/Plan Antibiotics: [] Assessment/Plan: [] Active and Suspected Problems Acute respiratory failure with hypoxia (Acute) Heroin abuse (Acute) Denies recent injecting. Overdosed yesterday after snorting. HIV and hep panel pending. Bcx pending. Echo pending. No infected injection sites seen on exam. Low suspicion for MRSA or endocarditis, so likely can stop vanc soon depending on results of TTE and bcx. Will narrow zosyn to unasyn. Thank you, will follow.
[2018-02-11] MEDS: 0.9% Normal Saline 1,000 ML 100 ML IV (14:47)
--- NOTE | 2018-02-11 15:04 | PCM.PN.HOSP ---
Patient Problems: Active and Suspected Problems Acute respiratory failure with hypoxia (Acute) Heroin abuse (Acute) Subjective: Found down, acute respiratory failure Objective: This is a 32-year-old male with history of heroin abuse who was found down while camping, he was taken to the ED by EMS yesterday, he was reportedly blue with frothy sputum. He was was evaluated in the emergency room and admitted to ICU. He did not require endotracheal intubation, he was placed on broad-spectrum antibiotics, his echocardiogram does not suggest any evidence of endocarditis. He is now alert and oriented to time place and person. Vitals/I&O's: Vital Signs Temp Pulse Resp BP Pulse Ox 99.1 F 97 19 H 125/65 H 99 02/11/18 14:00 02/11/18 14:00 02/11/18 14:00 02/11/18 14:00 02/11/18 14:37 Oxygen Flow Rate (L/min) 3 Oxygen Delivery Method Nasal Cannula Weight: 81.3 kg Body Mass Index (BMI) 27.3 Intake and Output for Last 24 Hours 02/09/18 02/10/18 02/11/18 23:59 23:59 23:59 Intake Total 1711 / 1711 Output Total 1265 / 1265 Balance 446 / 446 General: Alert, Oriented x3 HEENT: Atraumatic Neck: Supple Lungs: Clear to auscultation, No wheeze Cardiovascular: Regular rate, Normal S1, Normal S2 Abdomen: Bowel Sounds Present, Soft, Non Tender Extremities: No edema Neurological: Cranial nerves II-XII grossly intact, Motor Exam 5/5 strength throughout Psych/Mental Status: Normal Affect Microbiology Past 72 Hours 02/10/18 22:00 Urine, Clean Catch Legionella Antigen - Final 02/10/18 22:00 Urine, Clean Catch Streptococcus pneumoniae Antigen (M - Final Laboratory Results 02/10/18 18:43: Lactic Acid 1.4 02/10/18 19:35: PT 14.7, INR 1.2, APTT 25.2 02/10/18 19:35: Total Bilirubin 0.30, Direct Bilirubin 0.12, AST 87 H, ALT 79 H, Alkaline Phosphatase 170 H, Total Protein 6.0 L, Albumin 2.8 L, Globulin 3.2 02/10/18 19:35: Hepatitis A IgM Ab Pending, Hep Bs Antigen Pending, Hep B Core IgM Ab Pending, Hepatitis C Ab (EIA) Pending 02/10/18 19:35: HIV 1&2 Antibody Non-Reactive 02/10/18 20:20: MRSA (PCR) POSITIVE H 02/10/18 22:00: Urine Color Yellow, Urine Clarity Cloudy, Urine pH 6.0, Ur Specific [place] 1.025, Urine Protein 30 H, Urine Glucose (UA) Normal, Urine Ketones Negative, Urine Occult Blood 50 H, Urine Nitrite Negative, Urine Bilirubin Negative, Urine Urobilinogen Normal, Ur Leukocyte Esterase 500 H 02/11/18 04:30: WBC 7.5, RBC 4.90, Hgb 13.9, Hct 41.4, MCV 84.5, MCH 28.4, MCHC 33.6, RDW 13.3, RDW Differential 40.5, Plt Count 187, MPV 9.1 02/11/18 04:30: Sodium Cancelled, Potassium Cancelled, Chloride Cancelled, Carbon Dioxide Cancelled, Anion Gap Cancelled, BUN Cancelled, Creatinine Cancelled, Estim Creat Clear Calc Cancelled, Est GFR (MDRD) Af Amer Cancelled, Est GFR (MDRD) Non-Af Cancelled, BUN/Creatinine Ratio Cancelled, Glucose Cancelled, Calcium Cancelled 02/11/18 06:00: Sodium 141, Potassium 3.8, Chloride 110 H, Carbon Dioxide 24.0, Anion Gap 7, BUN 20 H, Creatinine 1.02, Estim Creat Clear Calc 100.59, Est GFR (MDRD) Af Amer 108, Est GFR (MDRD) Non-Af 90, BUN/Creatinine Ratio 19.6, Glucose 109 H, Calcium 8.0 L Current Medications Acetaminophen (Tylenol) 650 mg PO Q4H PRN PRN PRN Reason: FEVER Acetaminophen (Tylenol) 650 mg PO Q4H PRN PRN PRN Reason: Mild-Moderate Pain/Headache Albuterol Sulfate (Ventolin Aerosols) 2.5 mg INHALATION Q2H PRN PRN PRN Reason: SHORTNESS OF BREATH Famotidine (Pepcid) 20 mg PO BID [facility] Last Admin: 02/11/18 09:41 Dose: 20 mg Guaifenesin (Mucinex) 1,200 mg PO BID [facility] Last Admin: 02/11/18 09:29 Dose: Not Given Sodium Chloride () 1,000 mls @ 100 mls/hr IV .Q10H [facility] Last Admin: 02/11/18 14:47 Dose: 100 mls/hr Vancomycin HCl (Vancomycin) 1,000 mg in 200 mls @ 200 mls/hr IV Q12H [facility] Last Admin: 02/11/18 10:27 Dose: 200 mls/hr Ampicillin Sodium/Sulbactam (Sodium 3 gm/ Sodium Chloride) 112 mls @ 150 mls/hr IV Q8 [facility] Last Admin: 02/11/18 14:47 Dose: 150 mls/hr Ondansetron HCl (Zofran) 4 mg IV Q4H PRN PRN PRN Reason: NAUSEA Prochlorperazine Edisylate (Compazine Iv) 10 mg IV Q6H PRN PRN PRN Reason: Nausea/Vomiting Sodium Chloride () 5 - 30 ml IV UD PRN PRN Reason: SALINE FLUSH Medical Necessity - Tobacco Use Smoking Status: Current every day smoker Assessment/Plan Active and Suspected Problems Acute respiratory failure with hypoxia (Acute) Heroin abuse (Acute) 1. Acute respiratory failure with hypoxia; this has improved we will continue on oxygen per nasal cannula and wean as tolerated. 2. acute Encephalopathy due to accidental drug overdose; this has improved. He is advised to refrain from illicit drug use. 3. Presumptive aspiration pneumonia; will continue on IV Unasyn. 4. Early ambulation for DVT prophylaxis Code Visit Inpatient E&M: [id number] [facility] Hosp L2
[2018-02-11] MEDS: guaiFENesin 1,200 MG Tablet 1200 MG PO (21:17)
[2018-02-12] VITALS (21 sets, daily range): BP systolic 110–150; BP diastolic 61–89; PULSE 71–111; RESP 12–33; TEMP 37.1–37.6; O2SAT 90–100
--- NOTE | 2018-02-12 02:55 | CPS ---
pt asked nursing to take off bipap
[2018-02-12] MEDS: 0.9% Normal Saline 1,000 ML 100 ML IV ×2 (05:27→14:22)
--- NOTE | 2018-02-12 06:20 | RAD_ITS ---
STUDY: X-RAY CHEST REASON FOR EXAM: Male, 32 years old. Pleural effusion TECHNIQUE: Single AP portable view of the chest. COMPARISON: 02/11/2018 FINDINGS: EKG lines overlying the chest. The lungs are expanded. Bilateral patchy opacities. There is no demonstrated pleural abnormality. Normal size heart. Normal mediastinum and keeley. Normal visualized pulmonary arteries. Normal visualized aortic arch and descending thoracic aorta. Normal visualized thoracic spine. Normal visualized ribs, clavicles, and shoulders. There is no demonstrated abnormality of the visualized soft tissue structures of the upper abdomen. RAD/Chest 1 View (Portable) IMPRESSION: No interval change patchy bilateral infiltrates. Electronically Signed: Olivier Donald DO at 8:43 EDT , Service support ,
[2018-02-12 06:45] LABS: Absolute Lymphocyte Count 1.73 X10^3/ul (0.83-4.51); Absolute Neutrophil Count 8.4 X10^3/uL (2.0-7.7); Basophil# 0.02 X10^3/uL; Basophil% 0.2 % (0-1); Eosinophil# 0.21 X10^3/uL; Eosinophils% 1.9 % (0-5); Hematocrit 35.6 % (40-54); Hemoglobin 12.2 g/dl (13.0-16.5); Lymphocyte # 1.73 X10^3/ul (4.0); Lymphocyte % 15.9 % (19-41); Mean Corp Hgb Conc 34.3 g/gl (32-36); Mean Corpuscular Volume 84.8 fL (80-94); Mean Platelet Vol. 8.9 fl (6.2-12.0); Monocyte# 0.54 X10^3/uL; Neutrophil # 8.37 X10^3/uL (2.7-7.7); Neutrophil % 76.7 % (47-70); Platelet Count 172 K/mm3 (150-450); RBC Distribution Width CV 13.1 % (11.6-14.6); RBC Distribution Width SD 39.8 fl (35.1-43.9); White Blood Count 10.9 K/mm3 (4.4-11.0)
[2018-02-12 06:51] LABS: POSITIVE COUNT NO; POSITIVE DIFFERENTIAL NO; POSITIVE MORPHOLOGY NO
--- NOTE | 2018-02-12 07:00 | PN_ITS ---
Subjective: Patient did okay overnight. Patient's oxygenation continued to improve and patient was actually on room air yesterday. Patient has requested BiPAP therapy overnight intermittently secondary to reported shortness of breath. Patient tolerating p.o. without difficulty. No hemodynamic instability has been noted, but patient did have an elevated temperature yesterday. Objective: Morning chest x-ray shows continued infiltrates bilaterally. Formal interpretation is still pending. Echocardiogram showed an EF of 65% with no diastolic dysfunction. No significant valvular vegetations noted. Trivial insufficiencies were noted. General: Alert, Oriented x3, Cooperative, No apparent distress, - - Speaking in full sentences. Appears stated age. HEENT: Atraumatic, PERRLA, EOMI, Normocephalic, - - No scleral icterus or injection noted. Oral: Moist Mucosa, No Gingival or Mucosal Lesions/ Ulcerations Neck: Supple, No JVD, No Nodes, Trachea Midline Lungs: No rhonchi, No wheeze, Rales, - - Symmetric expansion. No dullness to percussion. Cardiovascular: Normal S1, Normal S2, No murmurs, No rub noted, No Gallop, Tachycardic Abdomen: Bowel Sounds Present, Soft, Non Tender, Non-Distended Extremities: No clubbing, No cyanosis, No edema, Capillary Refill Less than 3 Seconds Skin: - - Track chan appear to be healing Musculoskeletal: No Tenderness to Palpation of Joints or Extremities Lymphatic: No Cervical, Supraclavicular, or Inguinal Adenopathy Neurological: Cranial nerves II-XII grossly intact, Neuro grossly intact, Motor Exam 5/5 strength throughout Psych/Mental Status: Alert and oriented to time, place, person, mood and affect Vital Signs Temp Pulse Resp BP Pulse Ox 37.2 C 100 28 H 120/61 98 02/12/18 06:00 02/12/18 06:00 02/12/18 06:00 02/12/18 06:00 02/12/18 06:00 Oxygen Flow Rate (L/min) 2 Oxygen Delivery Method Nasal Cannula Weight: 81.3 kg Body Mass Index (BMI) 27.3 Intake and Output for Last 24 Hours 02/10/18 02/11/18 02/12/18 23:59 23:59 23:59 Intake Total 2763 / 2763 1810 / 1810 Output Total 2865 / 2865 3200 / 3200 Balance -102 / -102 -1390 / -1390 Labs (Last 48 Hours) 02/10/18 02/10/18 02/10/18 18:43 19:35 19:35 WBC RBC Hgb Hct MCV MCH MCHC RDW RDW Differential Plt Count MPV Immature Gran % (Auto) Neut % (Auto) Lymph % (Auto) [place] % (Auto) Eos % (Auto) Baso % (Auto) Absolute Neuts (auto) Absolute Lymphs (auto) Total Counted PT 14.7 INR 1.2 APTT 25.2 Sodium Potassium Chloride Carbon Dioxide Anion Gap BUN Creatinine Estim Creat Clear Calc Est GFR (MDRD) Af Amer Est GFR (MDRD) Non-Af BUN/Creatinine Ratio Glucose Lactic Acid 1.4 Calcium Total Bilirubin 0.30 Direct Bilirubin 0.12 AST 87 H ALT 79 H Alkaline Phosphatase 170 H Total Protein 6.0 L Albumin 2.8 L Globulin 3.2 Urine Color Urine Clarity Urine pH Ur Specific [place] Urine Protein Urine Glucose (UA) Urine Ketones Urine Occult Blood Urine Nitrite Urine Bilirubin Urine Urobilinogen Ur Leukocyte Esterase Hepatitis A IgM Ab Hep Bs Antigen Hep B Core IgM Ab Hepatitis C Ab (EIA) HIV 1&2 Antibody MRSA (PCR) 02/10/18 02/10/18 02/10/18 19:35 19:35 20:20 WBC RBC Hgb Hct MCV MCH MCHC RDW RDW Differential Plt Count MPV Immature Gran % (Auto) Neut % (Auto) Lymph % (Auto) [place] % (Auto) Eos % (Auto) Baso % (Auto) Absolute Neuts (auto) Absolute Lymphs (auto) Total Counted PT INR APTT Sodium Potassium Chloride Carbon Dioxide Anion Gap BUN Creatinine Estim Creat Clear Calc Est GFR (MDRD) Af Amer Est GFR (MDRD) Non-Af BUN/Creatinine Ratio Glucose Lactic Acid Calcium Total Bilirubin Direct Bilirubin AST ALT Alkaline Phosphatase Total Protein Albumin Globulin Urine Color Urine Clarity Urine pH Ur Specific [place] Urine Protein Urine Glucose (UA) Urine Ketones Urine Occult Blood Urine Nitrite Urine Bilirubin Urine Urobilinogen Ur Leukocyte Esterase Hepatitis A IgM Ab Pending Hep Bs Antigen Pending Hep B Core IgM Ab Pending Hepatitis C Ab (EIA) Pending HIV 1&2 Antibody Non-Reactive MRSA (PCR) POSITIVE H 02/10/18 02/11/18 02/11/18 22:00 04:30 04:30 WBC 7.5 RBC 4.90 Hgb 13.9 Hct 41.4 MCV 84.5 MCH 28.4 MCHC 33.6 RDW 13.3 RDW Differential 40.5 Plt Count 187 MPV 9.1 Immature Gran % (Auto) Neut % (Auto) Lymph % (Auto) [place] % (Auto) Eos % (Auto) Baso % (Auto) Absolute Neuts (auto) Absolute Lymphs (auto) Total Counted PT INR APTT Sodium Cancelled Potassium Cancelled Chloride Cancelled Carbon Dioxide Cancelled Anion Gap Cancelled BUN Cancelled Creatinine Cancelled Estim Creat Clear Calc Cancelled Est GFR (MDRD) Af Amer Cancelled Est GFR (MDRD) Non-Af Cancelled BUN/Creatinine Ratio Cancelled Glucose Cancelled Lactic Acid Calcium Cancelled Total Bilirubin Direct Bilirubin AST ALT Alkaline Phosphatase Total Protein Albumin Globulin Urine Color Yellow Urine Clarity Cloudy Urine pH 6.0 Ur Specific [place] 1.025 Urine Protein 30 H Urine Glucose (UA) Normal Urine Ketones Negative Urine Occult Blood 50 H Urine Nitrite Negative Urine Bilirubin Negative Urine Urobilinogen Normal Ur Leukocyte Esterase 500 H Hepatitis A IgM Ab Hep Bs Antigen Hep B Core IgM Ab Hepatitis C Ab (EIA) HIV 1&2 Antibody MRSA (PCR) 02/11/18 02/12/18 06:00 06:30 WBC 10.9 RBC 4.20 L Hgb 12.2 L Hct 35.6 L MCV 84.8 MCH 29.0 MCHC 34.3 RDW 13.1 RDW Differential 39.8 Plt Count 172 MPV 8.9 Immature Gran % (Auto) 0.300 Neut % (Auto) 76.7 H Lymph % (Auto) 15.9 L [place] % (Auto) 5.0 Eos % (Auto) 1.9 Baso % (Auto) 0.2 Absolute Neuts (auto) 8.4 H Absolute Lymphs (auto) 1.73 Total Counted Not Reportable PT INR APTT Sodium 141 Potassium 3.8 Chloride 110 H Carbon Dioxide 24.0 Anion Gap 7 BUN 20 H Creatinine 1.02 Estim Creat Clear Calc 100.59 Est GFR (MDRD) Af Amer 108 Est GFR (MDRD) Non-Af 90 BUN/Creatinine Ratio 19.6 Glucose 109 H Lactic Acid Calcium 8.0 L Total Bilirubin Direct Bilirubin AST ALT Alkaline Phosphatase Total Protein Albumin Globulin Urine Color Urine Clarity Urine pH Ur Specific [place] Urine Protein Urine Glucose (UA) Urine Ketones Urine Occult Blood Urine Nitrite Urine Bilirubin Urine Urobilinogen Ur Leukocyte Esterase Hepatitis A IgM Ab Hep Bs Antigen Hep B Core IgM Ab Hepatitis C Ab (EIA) HIV 1&2 Antibody MRSA (PCR) Microbiology 02/10/18 22:00 Urine, Clean Catch Legionella Antigen - Final 02/10/18 22:00 Urine, Clean Catch Streptococcus pneumoniae Antigen (M - Final Medical Necessity - Tobacco Use Smoking Status: Current every day smoker Assessment/Plan Active and Suspected Problems Acute respiratory failure with hypoxia (Acute) Heroin abuse (Acute) RECOMMENDATIONS: 1. Continue empiric antibiotics until culture negative 2. Increase activity as tolerated 3. Discontinue BiPAP therapy 4. Okay to leave the intensive care unit IMPRESSIONS: 1. Acute hypoxic respiratory failure Exact etiology is unclear at this time. Differential diagnosis would include: ARDS, septic emboli, neurogenic pulmonary edema, PCP pneumonia and hypersensitivity pneumonitis secondary to talc. Patient's oxygenation is much improved since presentation making ARDS unlikely. Patient continues to have infiltrates despite significant diuresis. Some concern for hypersensitivity pneumonitis. Likely okay to leave the intensive care unit from my perspective. BiPAP rescue likely not necessary. Elevated temperature overnight may be secondary to withdrawal. 2. Poor cooperation/history of heroin abuse Patient is not very forthcoming on the details leading to his presentation. Will need to watch closely for signs and symptoms of withdrawal. HIV testing is negative. Hepatitis panel is currently pending. Code Visit Inpatient E&M: [id number] [facility] Hosp L3
--- NOTE | 2018-02-12 09:11 | PCM.PN.HOSP ---
Patient Problems: Active and Suspected Problems Acute respiratory failure with hypoxia (Acute) Heroin abuse (Acute) Subjective: Patient seen and examined. He has no complaints and was sleeping in bed. SOB has improved, and he is on 2L of oxygen by nasal canula. He was on room air yesterday, and only requested BIPAP intermittently during the night due to SOB. He denied any cough, chest pain, abdominal pain, diarrhea or vomiting. Review of systems is otherwise negative. Vitals/I&O's: Vital Signs Temp Pulse Resp BP Pulse Ox 99 F 92 16 150/85 H 98 02/12/18 06:00 02/12/18 08:00 02/12/18 08:00 02/12/18 08:00 02/12/18 08:00 Oxygen Flow Rate (L/min) 2 Oxygen Delivery Method Room Air Weight: 179 lb 3.773 oz Body Mass Index (BMI) 27.3 Intake and Output for Last 24 Hours 02/10/18 02/11/18 02/12/18 23:59 23:59 23:59 Intake Total 2763 / 2763 1810 / 1810 Output Total 2865 / 2865 3200 / 3200 Balance -102 / -102 -1390 / -1390 General: Alert, Oriented x3, Cooperative, No apparent distress HEENT: Atraumatic, PERRLA, EOMI, Normocephalic Oral: Moist Mucosa Neck: Supple, No JVD, Negative Carotid Bruits Lungs: Clear to auscultation, Normal air movement, No rhonchi, No wheeze, No rales Cardiovascular: Regular rate, Regular Rhythm, Normal S1, Normal S2, No murmurs Abdomen: Bowel Sounds Present, Soft, Non Tender, Non-Distended, No Hepato-splenomegaly Extremities: No clubbing, No cyanosis, No edema, Capillary Refill Less than 3 Seconds Skin: No rashes, No breakdown, - - no track chan seen Musculoskeletal: No Tenderness to Palpation of Joints or Extremities Lymphatic: No Cervical, Supraclavicular, or Inguinal Adenopathy Neurological: Cranial nerves II-XII grossly intact, Motor Exam 5/5 strength throughout, Muscle tone normal Psych/Mental Status: Normal Affect, Appropriate, Alert and oriented to time, place, person, mood and affect Microbiology Past 72 Hours 02/10/18 22:00 Urine, Clean Catch Urine Culture - Final Mixed Gram Positive Organisms 02/10/18 22:00 Urine, Clean Catch Legionella Antigen - Final 02/10/18 22:00 Urine, Clean Catch Streptococcus pneumoniae Antigen (M - Final Laboratory Results 02/12/18 06:30: WBC 10.9, RBC 4.20 L, Hgb 12.2 L, Hct 35.6 L, MCV 84.8, MCH 29.0, MCHC 34.3, RDW 13.1, RDW Differential 39.8, Plt Count 172, MPV 8.9, Immature Gran % (Auto) 0.300, Neut % (Auto) 76.7 H, Lymph % (Auto) 15.9 L, [place] % (Auto) 5.0, Eos % (Auto) 1.9, Baso % (Auto) 0.2, Absolute Neuts (auto) 8.4 H, Absolute Lymphs (auto) 1.73, Total Counted Not Reportable 02/12/18 08:30: Vancomycin Trough Pending Current Medications Acetaminophen (Tylenol) 650 mg PO Q4H PRN PRN PRN Reason: FEVER Acetaminophen (Tylenol) 650 mg PO Q4H PRN PRN PRN Reason: Mild-Moderate Pain/Headache Albuterol Sulfate (Ventolin Aerosols) 2.5 mg INHALATION Q2H PRN PRN PRN Reason: SHORTNESS OF BREATH Famotidine (Pepcid) 20 mg PO BID [facility] Last Admin: 02/11/18 21:17 Dose: 20 mg Guaifenesin (Mucinex) 1,200 mg PO BID [facility] Last Admin: 02/11/18 21:17 Dose: 1,200 mg Sodium Chloride () 1,000 mls @ 100 mls/hr IV .Q10H [facility] Last Admin: 02/12/18 05:27 Dose: 100 mls/hr Vancomycin HCl (Vancomycin) 1,000 mg in 200 mls @ 200 mls/hr IV Q12H [facility] Last Admin: 02/11/18 21:17 Dose: 200 mls/hr Ampicillin Sodium/Sulbactam (Sodium 3 gm/ Sodium Chloride) 112 mls @ 150 mls/hr IV Q8 [facility] Last Admin: 02/12/18 05:27 Dose: 150 mls/hr Ondansetron HCl (Zofran) 4 mg IV Q4H PRN PRN PRN Reason: NAUSEA Prochlorperazine Edisylate (Compazine Iv) 10 mg IV Q6H PRN PRN PRN Reason: Nausea/Vomiting Sodium Chloride () 5 - 30 ml IV UD PRN PRN Reason: SALINE FLUSH Medical Necessity - Tobacco Use Smoking Status: Current every day smoker Assessment/Plan Active and Suspected Problems Acute respiratory failure with hypoxia (Acute) Heroin abuse (Acute) 32 y/o male admitted [place] after overdosing on heroin. He was admitted to ICU and managed for acute respiratory failure and possible aspiration pneumonia due to heroin overdose. He is now on 2L of oxygen by nasal canula. Echo showed EF of 65%, with no evidence of iastolic dysfunction and trivial tricuspid and mitral as well as pulmonic valve insufficiency 1. Acute hypoxic respiratory failure due to heroin overdose resolving. Off BiPAP; now on 2L of oxygen by nasal canula. saturating well. Will continue on oxygen and wean off as tolerated on breathing treatment with albuterol 2. Aspiration pneumonia due to heroin overdose stable. Lungs sound clear this morning. CXR today showed bilateral patchy opacities with no interval changes. on IV vancomycin and IV unasyn; today is day 2 blood cultures are pending. Will continue antibiotics until blood culture results are in, and de-escalate as needed 3. Acute encephalopathy due to heroin overdose: resolved. 4. Opiate dependence: counselled on refraining from illicit drug use. Will give resources for community help upon discharge. 5. DVT prophylaxis: will start sc heparin 6. GI prophylaxis: famotidine Code Visit Inpatient E&M: [id number] [facility] L3
--- NOTE | 2018-02-12 09:15 | PN_ITS ---
Patient Problems: Active and Suspected Problems Acute respiratory failure with hypoxia (Acute) Heroin abuse (Acute) Subjective: Patient seen and examined. He has no complaints and was sleeping in bed. SOB has improved, and he is on 2L of oxygen by nasal canula. He was on room air yesterday, and only requested BIPAP intermittently during the night due to SOB. He denied any cough, chest pain, abdominal pain, diarrhea or vomiting. Review of systems is otherwise negative. Vitals/I&O's: Vital Signs Temp Pulse Resp BP Pulse Ox 99 F 92 16 150/85 H 98 02/12/18 06:00 02/12/18 08:00 02/12/18 08:00 02/12/18 08:00 02/12/18 08:00 Oxygen Flow Rate (L/min) 2 Oxygen Delivery Method Room Air Weight: 179 lb 3.773 oz Body Mass Index (BMI) 27.3 Intake and Output for Last 24 Hours 02/10/18 02/11/18 02/12/18 23:59 23:59 23:59 Intake Total 2763 / 2763 1810 / 1810 Output Total 2865 / 2865 3200 / 3200 Balance -102 / -102 -1390 / -1390 General: Alert, Oriented x3, Cooperative, No apparent distress HEENT: Atraumatic, PERRLA, EOMI, Normocephalic Oral: Moist Mucosa Neck: Supple, No JVD, Negative Carotid Bruits Lungs: Clear to auscultation, Normal air movement, No rhonchi, No wheeze, No rales Cardiovascular: Regular rate, Regular Rhythm, Normal S1, Normal S2, No murmurs Abdomen: Bowel Sounds Present, Soft, Non Tender, Non-Distended, No Hepato- splenomegaly Extremities: No clubbing, No cyanosis, No edema, Capillary Refill Less than 3 Seconds Skin: No rashes, No breakdown, - - no track chan seen Musculoskeletal: No Tenderness to Palpation of Joints or Extremities Lymphatic: No Cervical, Supraclavicular, or Inguinal Adenopathy Neurological: Cranial nerves II-XII grossly intact, Motor Exam 5/5 strength throughout, Muscle tone normal Psych/Mental Status: Normal Affect, Appropriate, Alert and oriented to time, place, person, mood and affect Microbiology Past 72 Hours 02/10/18 22:00 Urine, Clean Catch Urine Culture - Final Mixed Gram Positive Organisms 02/10/18 22:00 Urine, Clean Catch Legionella Antigen - Final 02/10/18 22:00 Urine, Clean Catch Streptococcus pneumoniae Antigen (M - Final Laboratory Results 02/12/18 06:30: WBC 10.9, RBC 4.20 L, Hgb 12.2 L, Hct 35.6 L, MCV 84.8, MCH 29.0 , MCHC 34.3, RDW 13.1, RDW Differential 39.8, Plt Count 172, MPV 8.9, Immature Gran % (Auto) 0.300, Neut % (Auto) 76.7 H, Lymph % (Auto) 15.9 L, [place] % (Auto) 5.0, Eos % (Auto) 1.9, Baso % (Auto) 0.2, Absolute Neuts (auto) 8.4 H, Absolute Lymphs (auto) 1.73, Total Counted Not Reportable 02/12/18 08:30: Vancomycin Trough Pending Current Medications Acetaminophen (Tylenol) 650 mg PO Q4H PRN PRN PRN Reason: FEVER Acetaminophen (Tylenol) 650 mg PO Q4H PRN PRN PRN Reason: Mild-Moderate Pain/Headache Albuterol Sulfate (Ventolin Aerosols) 2.5 mg INHALATION Q2H PRN PRN PRN Reason: SHORTNESS OF BREATH Famotidine (Pepcid) 20 mg PO BID [facility] Last Admin: 02/11/18 21:17 Dose: 20 mg Guaifenesin (Mucinex) 1,200 mg PO BID [facility] Last Admin: 02/11/18 21:17 Dose: 1,200 mg Sodium Chloride () 1,000 mls @ 100 mls/hr IV .Q10H [facility] Last Admin: 02/12/18 05:27 Dose: 100 mls/hr Vancomycin HCl (Vancomycin) 1,000 mg in 200 mls @ 200 mls/hr IV Q12H [facility] Last Admin: 02/11/18 21:17 Dose: 200 mls/hr Ampicillin Sodium/Sulbactam (Sodium 3 gm/ Sodium Chloride) 112 mls @ 150 mls/ hr IV Q8 [facility] Last Admin: 02/12/18 05:27 Dose: 150 mls/hr Ondansetron HCl (Zofran) 4 mg IV Q4H PRN PRN PRN Reason: NAUSEA Prochlorperazine Edisylate (Compazine Iv) 10 mg IV Q6H PRN PRN PRN Reason: Nausea/Vomiting Sodium Chloride () 5 - 30 ml IV UD PRN PRN Reason: SALINE FLUSH Medical Necessity - Tobacco Use Smoking Status: Current every day smoker Assessment/Plan Active and Suspected Problems Acute respiratory failure with hypoxia (Acute) Heroin abuse (Acute) 32 y/o male admitted [place] park after overdosing on heroin. He was admitted to ICU and managed for acute respiratory failure and possible aspiration pneumonia due to heroin overdose. He is now on 2L of oxygen by nasal canula. Echo showed EF of 65%, with no evidence of iastolic dysfunction and trivial tricuspid and mitral as well as pulmonic valve insufficiency 1. Acute hypoxic respiratory failure due to heroin overdose * resolving. Off BiPAP; now on 2L of oxygen by nasal canula. * saturating well. Will continue on oxygen and wean off as tolerated * on breathing treatment with albuterol * 2. Aspiration pneumonia due to heroin overdose * stable. Lungs sound clear this morning. * CXR today showed bilateral patchy opacities with no interval changes. * on IV vancomycin and IV unasyn; today is day 2 * blood cultures are pending. Will continue antibiotics until blood culture results are in, and de-escalate as needed * 3. Acute encephalopathy due to heroin overdose: resolved. 4. Opiate dependence: counselled on refraining from illicit drug use. Will give resources for community help upon discharge. 5. DVT prophylaxis: will start sc heparin 6. GI prophylaxis: famotidine Code Visit Inpatient E&M: 35015 [facility] L3
[2018-02-12 09:20] LABS: Vancomycin, Trough Level 4.5 ug/mL (5.0-15.0)
[2018-02-12 09:37] LABS: HEPATITIS B SURFACE AG Negative (Negative); Hepatitis A IgM Antibody Negative (Negative); Hepatitis B Core AB IgM Negative (Negative)
[2018-02-12] MEDS: guaiFENesin 1,200 MG Tablet 1200 MG PO ×2 (09:55→22:14)
[2018-02-12] MEDS: Famotidine 20 MG Tablet PO ×2 (09:55→22:13)
--- NOTE | 2018-02-12 10:16 | PCM.RX.CS ---
Consult Pharmacy has been consulted to manage selected antiobiotic: Vancomycin Type of Consult: Follow-up Suspected Infection: Sepsis Prior Doses of Antibiotics Received/Current Regimen: VANCOMYCIN 1250MG IV Q12HRS: 02/11 @1028, 2117 Labs: Sodium 141 mmol/L (136-145) 02/11/18 06:00 Potassium 3.8 mmol/L (3.5-5.1) 02/11/18 06:00 Chloride 110 mmol/L (98-107) H 02/11/18 06:00 Carbon Dioxide 24.0 mmol/L (21.0-32.0) 02/11/18 06:00 Anion Gap 7 (5-15) 02/11/18 06:00 BUN 20 mg/dL (7-18) H 02/11/18 06:00 Creatinine 1.02 mg/dL (0.70-1.30) 02/11/18 06:00 Est GFR (MDRD) Af Amer 108 mL/min (>60) 02/11/18 06:00 Est GFR (MDRD) Non-Af 90 mL/min (>60) 02/11/18 06:00 BUN/Creatinine Ratio 19.6 RATIO (10-20) 02/11/18 06:00 Glucose 109 mg/dL (74-106) H 02/11/18 06:00 Vancomycin Trough 4.5 ug/mL (5.0-15.0) L 02/12/18 08:30 Microbiology: Microbiology 02/10/18 22:00 Urine, Clean Catch Urine Culture - Final Mixed Gram Positive Organisms 02/10/18 22:00 Urine, Clean Catch Legionella Antigen - Final 02/10/18 22:00 Urine, Clean Catch Streptococcus pneumoniae Antigen (M - Final Weight used for dosin.6 kg Estimated Creatinine Clearance: 100ML/MIN Goal Trough: 15-20 mcg/mL Pharmacy Plan for Drug Dosing: Pharmacy Service will continue to monitor and adjust dosing as required. The patient had a trough drawn 11.5hrs from last dose which resulted in a trough of 4.5 (drawn appropriately). Since we are targeting a trough of 15-20, will increase the dose and frequency. Will recheck trough prior to 5th dose of new regimen PLAN/RECOMMENDATIONS 1. START Vancomycin 1500mg IV Q8hrs (02/12/18 @1800) 2. Trough scheduled 02/12/18 @ 0930, prior to 5th dose of vancomycin 3. Will continue to monitor daily
[2018-02-12 11:18] LABS: Hep C Antibodies >11.0 s/co ratio (0.0-0.9)
[2018-02-12 11:41] LABS: Anion Gap 6 (5-15); BUN 9 mg/dL (7-18); BUN/Creat Ratio 10.7 RATIO (10-20); Chloride 110 mmol/L (98-107); Creatinine, Serum 0.84 mg/dL (0.70-1.30); EST Glomerular Filtration Rate 112 mL/min (>60); Est Glom Filt Rate - Afr Amer 136 mL/min (>60); Estimated Creatinine Clearance 122.14 ml/min; Glucose 116 mg/dL (74-106); Potassium 3.4 mmol/L (3.5-5.1); Sodium Level 143 mmol/L (136-145)
[2018-02-12] MEDS: Heparin Injection (Vial) 5,000 UNIT/ML VIAL 5000 UNIT SC (22:14)
[2018-02-13 02:00] VITALS: BP 128/68; PULSE 101; RESP 16; TEMP 37.3; O2SAT 94
[2018-02-13] MEDS: 0.9% Normal Saline 1,000 ML 100 ML IV (03:22)
[2018-02-13 03:29] VITALS: PULSE 101
[2018-02-13] MEDS: Heparin Injection (Vial) 5,000 UNIT/ML VIAL 5000 UNIT SC (05:27)
--- NOTE | 2018-02-13 08:10 | PCM.PN.INT ---
Subjective: Patient transferred out of the intensive care unit yesterday. Patient has been weaned to room air and reports no issues overnight. Patient with no complaints this morning. Patient denies any dyspnea on exertion. General: Alert, Oriented x3, Cooperative, No apparent distress, Well developed, Well nourished, - - Speaks in full sentences. HEENT: Atraumatic, PERRLA, EOMI, Normocephalic, - - Scleral icterus or injection noted. Oral: Moist Mucosa, No Gingival or Mucosal Lesions/ Ulcerations Neck: Supple, No JVD, No Nodes, Trachea Midline Lungs: Clear to auscultation, Normal air movement, No rhonchi, No wheeze, No rales Cardiovascular: Regular rate, Regular Rhythm, Normal S1, Normal S2, No murmurs, No rub noted, No Gallop Abdomen: Bowel Sounds Present, Soft, Non Tender, Non-Distended Extremities: No clubbing, No cyanosis, No edema Skin: - - Unchanged from previous Musculoskeletal: No Tenderness to Palpation of Joints or Extremities, No Muscle Wasting Lymphatic: No Cervical, Supraclavicular, or Inguinal Adenopathy Neurological: Cranial nerves II-XII grossly intact, Neuro grossly intact, Motor Exam 5/5 strength throughout Psych/Mental Status: Alert and oriented to time, place, person, mood and affect Vital Signs Temp Pulse Resp BP Pulse Ox 37.3 C H 101 H 16 128/68 H 94 02/13/18 02:00 02/13/18 03:29 02/13/18 02:00 02/13/18 02:00 02/13/18 02:00 Oxygen Flow Rate (L/min) 2 Oxygen Delivery Method Room Air Weight: 81.3 kg Body Mass Index (BMI) 27.3 Intake and Output for Last 24 Hours 02/11/18 02/12/18 02/13/18 23:59 23:59 23:59 Intake Total 2763 / 2763 4120 / 4120 2728 / 2728 Output Total 2865 / 2865 3200 / 3200 Balance -102 / -102 920 / 920 2728 / 2728 Labs (Last 48 Hours) 02/10/18 02/12/18 02/12/18 19:35 06:30 08:30 WBC 10.9 RBC 4.20 L Hgb 12.2 L Hct 35.6 L MCV 84.8 MCH 29.0 MCHC 34.3 RDW 13.1 RDW Differential 39.8 Plt Count 172 MPV 8.9 Immature Gran % (Auto) 0.300 Neut % (Auto) 76.7 H Lymph % (Auto) 15.9 L [place] % (Auto) 5.0 Eos % (Auto) 1.9 Baso % (Auto) 0.2 Absolute Neuts (auto) 8.4 H Absolute Lymphs (auto) 1.73 Total Counted Not Reportable Sodium Potassium Chloride Carbon Dioxide Anion Gap BUN Creatinine Estim Creat Clear Calc Est GFR (MDRD) Af Amer Est GFR (MDRD) Non-Af BUN/Creatinine Ratio Glucose Calcium Vancomycin Trough 4.5 L Hepatitis A IgM Ab Negative Hep Bs Antigen Negative Hep B Core IgM Ab Negative Hepatitis C Ab (EIA) >11.0 H 02/12/18 08:30 WBC RBC Hgb Hct MCV MCH MCHC RDW RDW Differential Plt Count MPV Immature Gran % (Auto) Neut % (Auto) Lymph % (Auto) [place] % (Auto) Eos % (Auto) Baso % (Auto) Absolute Neuts (auto) Absolute Lymphs (auto) Total Counted Sodium 143 Potassium 3.4 L Chloride 110 H Carbon Dioxide 27.0 Anion Gap 6 BUN 9 Creatinine 0.84 Estim Creat Clear Calc 122.14 Est GFR (MDRD) Af Amer 136 Est GFR (MDRD) Non-Af 112 BUN/Creatinine Ratio 10.7 Glucose 116 H Calcium 8.0 L Vancomycin Trough Hepatitis A IgM Ab Hep Bs Antigen Hep B Core IgM Ab Hepatitis C Ab (EIA) Microbiology 02/10/18 22:00 Urine, Clean Catch Urine Culture - Final Mixed Gram Positive Organisms 02/10/18 22:00 Urine, Clean Catch Legionella Antigen - Final 02/10/18 22:00 Urine, Clean Catch Streptococcus pneumoniae Antigen (M - Final Clinical Impression(s) from Imaging Studies Chest X-Ray 02/12/18 06:20 IMPRESSION: No interval change patchy bilateral infiltrates. Electronically Signed: Oliiver Donald DO at 8:43 EDT , Service support , Medical Necessity - Tobacco Use Smoking Status: Current every day smoker Assessment/Plan Active and Suspected Problems Acute respiratory failure with hypoxia (Acute) Heroin abuse (Acute) RECOMMENDATIONS: 1. Repeat chest x-ray in 4-6 weeks 2. If infiltrate still present in 4-6 weeks, pulmonary follow-up can be requested 3. Dynamically stable on room air. Will sign off from a critical care perspective IMPRESSIONS: 1. Acute hypoxic respiratory failure Unclear etiology. Patient has significantly improved on oxygenation since presentation. Clinical concern for hypersensitivity pneumonitis secondary to illicit drug use. Patient should have a repeat chest x-ray in 4-6 weeks. If findings are still present, a pulmonary consultation would be appropriate, along with CT scan of the chest. However, high clinical suspicion the patient will return to baseline and would benefit from cessation of heroin. 2. Poor cooperation/history of heroin abuse Patient is not very forthcoming on the details leading to his presentation. Will need to watch closely for signs and symptoms of withdrawal. HIV testing is negative. Patient does have an elevated hepatitis C antibody. This does need to be followed up as an outpatient. Code Visit Inpatient E&M: 19301 Subs Hosp L2
--- NOTE | 2018-02-13 09:37 | PCM.PN.HOSP ---
Subjective: 32 y/o male admitted after being [place] a park after overdosing on heroin. He was admitted to ICU and managed for acute respiratory failure and possible aspiration pneumonia due to heroin overdose. Echo showed EF of 65%, with no evidence of iastolic dysfunction and trivial tricuspid and mitral as well as pulmonic valve insufficiency. Remains stable and was transferred out of the ICU on 02/12/2018 to the regular floor. Seen and examined. He had no complaints. He was weaned off of oxygen and is on room and saturating well. He has no complaints and denies any shortness of breath, any chest pain, any fever, any chills, any abdominal pain, any diarrhea vomiting. Review of systems otherwise negative. Vitals/I&O's: Vital Signs Temp Pulse Resp BP Pulse Ox 99.2 F H 101 H 16 128/68 H 94 02/13/18 02:00 02/13/18 03:29 02/13/18 02:00 02/13/18 02:00 02/13/18 02:00 Oxygen Flow Rate (L/min) 2 Oxygen Delivery Method Room Air Weight: 179 lb 3.773 oz Body Mass Index (BMI) 27.3 Intake and Output for Last 24 Hours 02/11/18 02/12/18 02/13/18 23:59 23:59 23:59 Intake Total 2763 / 2763 4120 / 4120 2728 / 2728 Output Total 2865 / 2865 3200 / 3200 Balance -102 / -102 920 / 920 2728 / 2728 General: Alert, Oriented x3, Cooperative, No apparent distress HEENT: Atraumatic, PERRLA, EOMI, Normocephalic Oral: Moist Mucosa Neck: Supple, No JVD, Negative Carotid Bruits Lungs: Clear to auscultation, Normal air movement, No rhonchi, No wheeze, No rales Cardiovascular: Regular rate, Regular Rhythm, Normal S1, Normal S2, No murmurs Abdomen: Bowel Sounds Present, Soft, Non Tender, Non-Distended, No Hepato-splenomegaly Extremities: No clubbing, No cyanosis, No edema, Capillary Refill Less than 3 Seconds Skin: No rashes, No breakdown Musculoskeletal: No Tenderness to Palpation of Joints or Extremities Lymphatic: No Cervical, Supraclavicular, or Inguinal Adenopathy Neurological: Cranial nerves II-XII grossly intact, Neuro grossly intact, Motor Exam 5/5 strength throughout Psych/Mental Status: Normal Affect, Appropriate, Alert and oriented to time, place, person, mood and affect Microbiology Past 72 Hours 02/10/18 22:00 Urine, Clean Catch Urine Culture - Final Mixed Gram Positive Organisms 02/10/18 22:00 Urine, Clean Catch Legionella Antigen - Final 02/10/18 22:00 Urine, Clean Catch Streptococcus pneumoniae Antigen (M - Final Laboratory Results 02/10/18 19:35: Hepatitis A IgM Ab Negative, Hep Bs Antigen Negative, Hep B Core IgM Ab Negative, Hepatitis C Ab (EIA) >11.0 H 02/12/18 08:30: Sodium 143, Potassium 3.4 L, Chloride 110 H, Carbon Dioxide 27.0, Anion Gap 6, BUN 9, Creatinine 0.84, Estim Creat Clear Calc 122.14, Est GFR (MDRD) Af Amer 136, Est GFR (MDRD) Non-Af 112, BUN/Creatinine Ratio 10.7, Glucose 116 H, Calcium 8.0 L Diagnostic Data Brain CT 02/10/18 18:52 IMPRESSION: No evidence of acute intracranial abnormality by noncontrast CT. at 1929 Reported and signed by: Nimisha Ireland MD Electronically Signed: Nimisha Ireland MD at 19:28 EDT Tel , Service support , Foot X-Ray 02/10/18 19:10 IMPRESSION: Soft tissue swelling of the right forefoot without evidence of fracture or dislocation. at 1929 Reported and signed by: Nimisha Ireland MD Electronically Signed: Nimisha Ireland MD at 19:27 EDT Tel , Service support , Chest X-Ray 02/12/18 06:20 IMPRESSION: No interval change patchy bilateral infiltrates. Electronically Signed: Olivier Donald at 8:43 EDT , Service support , Current Medications Acetaminophen (Tylenol) 650 mg PO Q4H PRN PRN PRN Reason: FEVER Acetaminophen (Tylenol) 650 mg PO Q4H PRN PRN PRN Reason: Mild-Moderate Pain/Headache Albuterol Sulfate (Ventolin Aerosols) 2.5 mg INHALATION Q2H PRN PRN PRN Reason: SHORTNESS OF BREATH Famotidine (Pepcid) 20 mg PO BID [facility] Last Admin: 02/12/18 22:13 Dose: 20 mg Guaifenesin (Mucinex) 1,200 mg PO BID [facility] Last Admin: 02/12/18 22:14 Dose: 1,200 mg Heparin Sodium (Porcine) (Heparin Na) 5,000 unit SC Q8 [facility] Last Admin: 02/13/18 05:27 Dose: 5,000 u Sodium Chloride () 1,000 mls @ 100 mls/hr IV .Q10H [facility] Last Admin: 02/13/18 03:22 Dose: 100 mls/hr Ampicillin Sodium/Sulbactam (Sodium 3 gm/ Sodium Chloride) 112 mls @ 150 mls/hr IV Q8 [facility] Last Admin: 02/13/18 05:27 Dose: 150 mls/hr Vancomycin HCl 1,500 mg/ (Sodium Chloride) 530 mls @ 250 mls/hr IV Q8H [facility] Last Admin: 02/13/18 03:00 Dose: 250 mls/hr Ondansetron HCl (Zofran) 4 mg IV Q4H PRN PRN PRN Reason: NAUSEA Prochlorperazine Edisylate (Compazine Iv) 10 mg IV Q6H PRN PRN PRN Reason: Nausea/Vomiting Sodium Chloride () 5 - 30 ml IV UD PRN PRN Reason: SALINE FLUSH Medical Necessity - Tobacco Use Smoking Status: Current every day smoker Assessment/Plan 32 y/o male admitted [place] after overdosing on heroin. He was admitted to ICU and managed for acute respiratory failure and possible aspiration pneumonia due to heroin overdose. Echo showed EF of 65%, with no evidence of iastolic dysfunction and trivial tricuspid and mitral as well as pulmonic valve insufficiency 1. Acute hypoxic respiratory failure due to heroin overdose resolving. weaned off 2L of oxygen overnight, and is now on room air on breathing treatment with albuterol. 2. Aspiration pneumonia due to heroin overdose stable. Lungs sound clear this morning. CXR today showed bilateral patchy opacities with no interval changes. on IV vancomycin and IV unasyn; today is day 3 blood cultures were negative after 48 hours. Will dc home on PO augmentin 875/125mg bid for 5 days for aspiration pneumonia. 3. Acute encephalopathy due to heroin overdose: resolved. 4. Opiate dependence: counselled on refraining from illicit drug use. Wants to set up with community resources for opiate dependence himself. 5. DVT prophylaxis: heparin 6. GI prophylaxis: famotidine Disposition: will dc home today. To follow up with primary care doctor and pulmonology. Code Visit Inpatient E&M: 37834 Subs Hosp L3
--- NOTE | 2018-02-13 09:46 | PN_ITS ---
Subjective: 32 y/o male admitted after being [place] a park after overdosing on heroin. He was admitted to ICU and managed for acute respiratory failure and possible aspiration pneumonia due to heroin overdose. Echo showed EF of 65%, with no evidence of iastolic dysfunction and trivial tricuspid and mitral as well as pulmonic valve insufficiency. Remains stable and was transferred out of the ICU on 02/12/2018 to the regular floor. Seen and examined. He had no complaints. He was weaned off of oxygen and is on room and saturating well. He has no complaints and denies any shortness of breath, any chest pain, any fever, any chills, any abdominal pain, any diarrhea vomiting. Review of systems otherwise negative. Vitals/I&O's: Vital Signs Temp Pulse Resp BP Pulse Ox 99.2 F H 101 H 16 128/68 H 94 02/13/18 02:00 02/13/18 03:29 02/13/18 02:00 02/13/18 02:00 02/13/18 02:00 Oxygen Flow Rate (L/min) 2 Oxygen Delivery Method Room Air Weight: 179 lb 3.773 oz Body Mass Index (BMI) 27.3 Intake and Output for Last 24 Hours 02/11/18 02/12/18 02/13/18 23:59 23:59 23:59 Intake Total 2763 / 2763 4120 / 4120 2728 / 2728 Output Total 2865 / 2865 3200 / 3200 Balance -102 / -102 920 / 920 2728 / 2728 General: Alert, Oriented x3, Cooperative, No apparent distress HEENT: Atraumatic, PERRLA, EOMI, Normocephalic Oral: Moist Mucosa Neck: Supple, No JVD, Negative Carotid Bruits Lungs: Clear to auscultation, Normal air movement, No rhonchi, No wheeze, No rales Cardiovascular: Regular rate, Regular Rhythm, Normal S1, Normal S2, No murmurs Abdomen: Bowel Sounds Present, Soft, Non Tender, Non-Distended, No Hepato- splenomegaly Extremities: No clubbing, No cyanosis, No edema, Capillary Refill Less than 3 Seconds Skin: No rashes, No breakdown Musculoskeletal: No Tenderness to Palpation of Joints or Extremities Lymphatic: No Cervical, Supraclavicular, or Inguinal Adenopathy Neurological: Cranial nerves II-XII grossly intact, Neuro grossly intact, Motor Exam 5/5 strength throughout Psych/Mental Status: Normal Affect, Appropriate, Alert and oriented to time, place, person, mood and affect Microbiology Past 72 Hours 02/10/18 22:00 Urine, Clean Catch Urine Culture - Final Mixed Gram Positive Organisms 02/10/18 22:00 Urine, Clean Catch Legionella Antigen - Final 02/10/18 22:00 Urine, Clean Catch Streptococcus pneumoniae Antigen (M - Final Laboratory Results 02/10/18 19:35: Hepatitis A IgM Ab Negative, Hep Bs Antigen Negative, Hep B Core IgM Ab Negative, Hepatitis C Ab (EIA) >11.0 H 02/12/18 08:30: Sodium 143, Potassium 3.4 L, Chloride 110 H, Carbon Dioxide 27.0 , Anion Gap 6, BUN 9, Creatinine 0.84, Estim Creat Clear Calc 122.14, Est GFR ( MDRD) Af Amer 136, Est GFR (MDRD) Non-Af 112, BUN/Creatinine Ratio 10.7, Glucose 116 H, Calcium 8.0 L Diagnostic Data Brain CT 02/10/18 18:52 IMPRESSION: No evidence of acute intracranial abnormality by noncontrast CT. at 1929 Reported and signed by: Nimisha Ireland MD Electronically Signed: Nimisha Ireland MD at 19:28 EDT Tel , Service support , Foot X-Ray 02/10/18 19:10 IMPRESSION: Soft tissue swelling of the right forefoot without evidence of fracture or dislocation. at 1929 Reported and signed by: Nimisha Ireland MD Electronically Signed: Nimisha Ireland MD at 19:27 EDT Tel , Service support , Chest X-Ray 02/12/18 06:20 IMPRESSION: No interval change patchy bilateral infiltrates. Electronically Signed: Olivier Donald at 8:43 EDT , Service support , Current Medications Acetaminophen (Tylenol) 650 mg PO Q4H PRN PRN PRN Reason: FEVER Acetaminophen (Tylenol) 650 mg PO Q4H PRN PRN PRN Reason: Mild-Moderate Pain/Headache Albuterol Sulfate (Ventolin Aerosols) 2.5 mg INHALATION Q2H PRN PRN PRN Reason: SHORTNESS OF BREATH Famotidine (Pepcid) 20 mg PO BID [facility] Last Admin: 02/12/18 22:13 Dose: 20 mg Guaifenesin (Mucinex) 1,200 mg PO BID [facility] Last Admin: 02/12/18 22:14 Dose: 1,200 mg Heparin Sodium (Porcine) (Heparin Na) 5,000 unit SC Q8 [facility] Last Admin: 02/13/18 05:27 Dose: 5,000 u Sodium Chloride () 1,000 mls @ 100 mls/hr IV .Q10H [facility] Last Admin: 02/13/18 03:22 Dose: 100 mls/hr Ampicillin Sodium/Sulbactam (Sodium 3 gm/ Sodium Chloride) 112 mls @ 150 mls/ hr IV Q8 [facility] Last Admin: 02/13/18 05:27 Dose: 150 mls/hr Vancomycin HCl 1,500 mg/ (Sodium Chloride) 530 mls @ 250 mls/hr IV Q8H [facility] Last Admin: 02/13/18 03:00 Dose: 250 mls/hr Ondansetron HCl (Zofran) 4 mg IV Q4H PRN PRN PRN Reason: NAUSEA Prochlorperazine Edisylate (Compazine Iv) 10 mg IV Q6H PRN PRN PRN Reason: Nausea/Vomiting Sodium Chloride () 5 - 30 ml IV UD PRN PRN Reason: SALINE FLUSH Medical Necessity - Tobacco Use Smoking Status: Current every day smoker Assessment/Plan 32 y/o male admitted [place] after overdosing on heroin. He was admitted to ICU and managed for acute respiratory failure and possible aspiration pneumonia due to heroin overdose. Echo showed EF of 65%, with no evidence of iastolic dysfunction and trivial tricuspid and mitral as well as pulmonic valve insufficiency 1. Acute hypoxic respiratory failure due to heroin overdose * resolving. weaned off 2L of oxygen overnight, and is now on room air * on breathing treatment with albuterol. * * 2. Aspiration pneumonia due to heroin overdose * stable. Lungs sound clear this morning. * CXR today showed bilateral patchy opacities with no interval changes. * on IV vancomycin and IV unasyn; today is day 3 * blood cultures were negative after 48 hours. Will dc home on PO augmentin 875/ 125mg bid for 5 days for aspiration pneumonia. * * 3. Acute encephalopathy due to heroin overdose: resolved. 4. Opiate dependence: counselled on refraining from illicit drug use. Wants to set up with community resources for opiate dependence himself. 5. DVT prophylaxis: heparin 6. GI prophylaxis: famotidine Disposition: will dc home today. To follow up with primary care doctor and pulmonology. Code Visit Inpatient E&M: 49353 Subs Hosp L3
--- NOTE | 2018-02-13 10:34 | PCM.DC ---
- Discharge Diagnoses Current Active Problems: Current Active and Chronic Problems Acute respiratory failure with hypoxia (Acute) Heroin abuse (Acute) You will use the following diet at home:: No restrictions Your food should be the consistency of: Regular Your liquids should be the consistency of: Regular/Thin Discharge Activity: Return to Normal Activity May resume sexual activity in: No Restrictions Weight Bearing Status: Weight bearing as tolerated Call your doctor if you observe: Shortness of breath Additional Instructions: to have chest xray in 4-6 weeks to follow up infiltrate. Please follow up and set up community resources for help with chemical dependence Allergies/Adverse Reactions: Allergies No Known Allergies Allergy (Verified 02/10/18 17:15) Medications to take at Discharge Amoxicillin/Potassium Clav [Augmentin 875-125 Tablet] 1 ea PO BID #10 tab 02/13/18 The following prescriptions were given: Amoxicillin/Potassium Clav [Augmentin 875-125 Tablet] 1 ea PO BID #10 tab Primary Care Physician: Nicholas Prince [Primary Care Provider] - Please Follow Up With: Dharmesh Perez MD When: two weeks
--- NOTE | 2018-02-13 10:38 | PCM.DC.SUM ---
Discharge Date and Diagnosis - Problem List Patient Problems: Active and Suspected Problems Acute respiratory failure with hypoxia (Acute) Heroin abuse (Acute) Date of Admission: 02/10/18 Date of Discharge: 02/13/18 - Primary Discharge Diagnosis Active and Suspected Problems Acute respiratory failure with hypoxia (Acute) Heroin abuse (Acute) aspiration pneumonia Hospital Course and Treatment Imaging Results: Diagnostic Data Brain CT 02/10/18 18:52 IMPRESSION: No evidence of acute intracranial abnormality by noncontrast CT. at 1929 Reported and signed by: Nimisha Ireland MD Electronically Signed: Nimisha Ireland MD at 19:28 EDT Tel , Service support , Foot X-Ray 02/10/18 19:10 IMPRESSION: Soft tissue swelling of the right forefoot without evidence of fracture or dislocation. at 1929 Reported and signed by: Nimisha Ireland MD Electronically Signed: Nimisha Ireland MD at 19:27 EDT Tel , Service support , Chest X-Ray 02/12/18 06:20 IMPRESSION: No interval change patchy bilateral infiltrates. Electronically Signed: Olivier Donald DO at 8:43 EDT , Service support , Operations: None Procedures: 2-D Echocardiogram Summary of Care Provided: Patient 32 y/o male admitted [place] after overdosing on heroin. He was admitted to ICU and managed for acute respiratory failure and possible aspiration pneumonia due to heroin overdose. Echo showed EF of 65%, with no evidence of diastolic dysfunction and trivial tricuspid and mitral as well as pulmonic valve insufficiency. He was started on IV unasyn. CXR showed dense diffuse bilateral airspace opacities. Remains stable and was transferred out of the ICU on 02/12/2018 to the regular floor. He was weaned off oxygen and saturated well on room air. Blood cultures were negative after 48 hours. He remained stable and was discharged home on p.o. Augmentin for 5 day course. He was offered community resources to help with chemical dependence but declined, saying he preferred to set these up on his own. He was discharged on 02/13/2018. He is to follow-up with his primary care doctor and pulmonology upon discharge. Discharge Activity: Return to Normal Activity May resume sexual activity in: No Restrictions Weight Bearing Status: Weight bearing as tolerated Call your doctor if you observe: Shortness of breath Home Medications: Medications to take at Discharge Amoxicillin/Potassium Clav [Augmentin 875-125 Tablet] 1 ea PO BID #10 tab 02/13/18 Following Prescrptions Were Given to Patient: Amoxicillin/Potassium Clav [Augmentin 875-125 Tablet] 1 ea PO BID #10 tab Primary Care Physician: Nicholas Prince [Primary Care Provider] - Please Follow Up With: Dharmesh Perez MD When: two weeks Disposition: Home Minutes spent on discharge:: 40 Patient Condition:: Good Medical Necessity - Tobacco Use Smoking Status: Current every day smoker Meaningful Use Info Meaningful Use Diagnoses (Choose all that apply): None applicable Code Visit Inpatient E&M: 77388 Disch Hosp
[2018-02-13] MEDS: Famotidine 20 MG Tablet PO (10:57)
[2018-02-13] MEDS: guaiFENesin 1,200 MG Tablet 1200 MG PO (10:57)
[2018-02-13 11:00] VITALS: PULSE 87
[2018-02-13 11:03] VITALS: BP 128/73; PULSE 90; RESP 16; TEMP 37; O2SAT 94
[2018-02-13 11:45] VITALS: O2SAT 95
[2018-02-13 13:43] VITALS: BP 127/83; PULSE 86; RESP 18; TEMP 36.8; O2SAT 94
== END 2018-02-13 13:45 | disposition home or self-care (01) | DRG 79 ==
LOC: ED 18:19 → ICU 18:22 → MS3 02-12 10:50
PROVIDERS: Internal Medicine Critical Care Medicine; Admitting Provider Internal Medicine; Emergency Provider Emergency Medicine; Family Provider Family Medicine; PCP Family Medicine; Visit Provider Student in an Organized Health Care Education/Training Program
DX: J69.0 Pneumonitis due to inhalation of food and vomit (principal); G92 Toxic encephalopathy; J96.01 Acute respiratory failure with hypoxia; F11.20 Opioid dependence, uncomplicated; T40.1X1A Poisoning by heroin, accidental (unintentional), initial encounter; F17.200 Nicotine dependence, unspecified, uncomplicated; Y92.830 Public park as the place of occurrence of the external cause
CPT/HCPCS: 36415; 36600; 70450; 71045; 71046; 73630; 80048; 80074; 80076; 80202; 81002; 82803; 83605; 83880; 85025; 85027; 85610; 85730; 86703; 87040; 87086; 87088; 87449; 87641; 93005; 93306; 94002; 94003; 94640; 97802; 99285; 99406; J7030; J7040; Q9957; A4216; J0295